=== PATIENT | female | born 1995 | race Caucasian/White ===

== ENCOUNTER 2018-02-02 20:42 | Emergency (ER) | payer SELFPAY ==
[2018-02-02 21:24] LABS: Absolute Lymphocytes (CBC) 2.9 K/uL (0.7-4.9); Absolute Monocytes 0.6 K/uL (0.1-1.3); Absolute Neutrophil 4.2 K/uL (1.8-8.0); Basophils % 0.5 % (0-1.3); Eosinophils % 1.2 % (0-4.4); Hematocrit 39.8 % (36.0-45.0); Lymphocytes % 37.4 % (15.3-44.8); MCH 29.5 pg (27.0-35.0); MCV 87.2 fL (80-100); MPV 8.8 fL (7.6-11.3); Monocytes % 7.6 % (3.3-12.3); RBC Red Blood Cell Count 4.56 M/uL (3.86-4.86)
[2018-02-02 21:32] LABS: Protime INR 0.97
--- NOTE | 2018-02-02 21:49 | EKG ---
Test Date: 2018-02-02 Test Time: 21:08:41 Variety Lathe Operator: IAN MEASUREMENT RESULTS: Intervals: Rate: 83 GA: 132 QRSD: 92 QT: 370 QTc: 434 [place]: P: 16 GA: 132 QRS: 63 T: 26 INTERPRETIVE STATEMENTS: Normal sinus rhythm Normal ECG Compared to ECG 11/11/2013 22:59:59 No significant changes Electronically Signed On 02-02-18 21:49:13 CDT by Rohith Ledesma
[2018-02-02 22:00] LABS: ALT/SGPT 8 U/L (12-78); AST/SGOT 8 U/L (15-37); Albumin 4.1 g/dL (3.4-5.0); Alkaline Phosphatase 49 U/L (45-117); BUN Blood Urea Nitrogen 11 mg/dL (7-18); Bicarbonate 17 mmol/L (21-32); Bilirubin Direct < 0.1 mg/dL (0-0.2); Bilirubin Total 0.4 mg/dL (0.2-1.0); CKMB Creatine Kinase MB < 1.0 ng/mL (0.3-3.6); Creatine Phosphokinase 81 U/L (26-192); Glucose Level 101 mg/dL (74-106); NT PRO-BNP 54 pg/mL (<125); Potassium 3.3 mmol/L (3.5-5.1); Protein, Total 7.9 g/dL (6.4-8.2); Sodium Level 138 mmol/L (136-145)
--- NOTE | 2018-02-02 22:12 | RAD REPORT ---
EXAM DESCRIPTION: Mery Single View02/02/2018 9:50 pm CLINICAL HISTORY: Chest pain COMPARISON: 2013 FINDINGS: The lungs appear clear of acute infiltrate. The heart is normal size IMPRESSION: No acute abnormalities displayed
[2018-02-02] MEDS ORDERED: ALTEPLASE 100 ML IV ONE (23:00)
[2018-02-02] MEDS ORDERED: NA CHLORIDE 0.9% 50 ML IV ONE (23:07)
--- NOTE | 2018-02-02 23:34 | ER ---
Nurse's Notes [facility] Name: Alexander Schneider Age: 22 yrs Sex: Female : 1995 Arrival Date: 02/02/2018 Time: 20:44 Bed 28 Private MD: Diagnosis: Ataxia, unspecified;Cerebral infarction Presentation: 02/02 21:01 Presenting complaint: Patient states: Left sided CP, blurred vision, SOB and tingling aj1 in the right arm for the past 30 minutes. Reports intermittent chest pain that is described as sharp. Denies palpitations, syncope, vomiting. Foreign Diplomat are equal bilaterally, but when asked to raise her leg, her right leg is shaking but remains up. Patient states she has a heart murmur that they are currently evaluating, states she has had the murmur her whole life but when her father was diagnosed with a stroke she started having everything checked out. Patient ambulated with a steady gait back to triage. Smile equal, equal eyebrow raise. Transition of care: patient was not received from another setting of care. Onset of symptoms was February 02, 2018 at 20:30. Risk Assessment: Do you want to hurt yourself or someone else? Patient reports no desire to harm self or others. Initial Sepsis Screen: Does the patient meet any 2 criteria? No. Patient's initial sepsis screen is negative. Does the patient have a suspected source of infection? No. Patient's initial sepsis screen is negative. Note Notified charge nurse Tonya of patient with stroke like symptoms. Care prior to arrival: None. 21:01 Method Of Arrival: Ambulatory aj1 21:01 Acuity: AMARILIS 3 aj1 Triage Assessment: 21:07 General: Appears in no apparent distress. comfortable, Behavior is calm, cooperative, aj1 appropriate for age. Pain: Complains of pain in anterior aspect of left upper chest Pain does not radiate. Pain currently is 7 out of 10 on a pain scale. Quality of pain is described as sharp, Pain began 30 min ago. Is intermittent, Alleviated by nothing. Aggravated by nothing. Neuro: Level of Consciousness is awake, alert, obeys commands, Oriented to person, place, time, situation, Foreign Diplomat are equal bilaterally Moves all extremities. shakiness to right leg. Gait is steady, Speech is normal, Facial symmetry appears normal, Pupils are PERRLA, Tingling in right arm Reports blurred vision numbness in right arm. Cardiovascular: Reports chest pain, Patient's skin is warm and dry. Chest pain is described as Pain is 7 out of 10 on a pain scale. quality is sharp, is located in left anterior chest wall. Respiratory: Airway is patent Respiratory effort is even, unlabored, Respiratory pattern is regular, symmetrical. 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 - Social history:: Smoking status: Patient/guardian denies using tobacco. - Ebola Screening: : Patient denies travel to an Ebola-affected area in the 21 days before illness onset. Screenin:18 Abuse screen: Denies threats or abuse. Denies injuries from another. Nutritional mg2 screening: No deficits noted. Tuberculosis screening: No symptoms or risk factors identified. Fall Risk IV access (20 points). 21:51 Patient has been NPO before screening. The patient is alert, able to follow commands. bb The patient does not exhibit slurred or garbled speech The patient is not exhibiting difficulty speaking. The patient does not exhibit difficulty understanding words. The patient is able to swallow own secretions with no drooling or need for suction. Patient tolerated one teaspoon of water. No drooling, immediate coughing, gurgling, or clearing of the throat was noted. The patient tolerated 90mL of water. No drooling, immediate coughing, gurgling, or clearing of the throat was noted. The patient passed the bedside swallow screening. Oral medications may be given as ordered. Contact Physician for further diet orders. Assessment: 21:18 General: Appears uncomfortable. mg2 22:06 Reassessment: patient sent to CT scan. mg2 22:07 Reassessment:. General: Appears distressed, uncomfortable, Behavior is cooperative, mg2 anxious, restless. Pain: Complains of pain in chest Pain does not radiate. Pain currently is 3 out of 10 on a pain scale. Quality of pain is described as aching, Pain began gradually, \T\ 2015 Is intermittent, Noted to be restless. Neuro: Level of Consciousness is awake, alert, obeys commands, Oriented to person, place, time, situation. Cardiovascular: Capillary refill < 3 seconds Patient's skin is warm and dry. Respiratory: Airway is patent Respiratory effort is even, Respiratory pattern is regular, hyperventilation Breath sounds are clear bilaterally. in right upper lobe, left upper lobe, left lower lobe, right lower lobe, left posterior upper lobe, right posterior upper lobe, left posterior lower lobe, right posterior middle lobe and right posterior lower lobe. GI: No signs and/or symptoms were reported involving the gastrointestinal system. : No signs and/or symptoms were reported regarding the genitourinary system. EENT: No signs and/or symptoms were reported regarding the EENT system. Derm: Skin is intact, Skin is pink, warm \T\ dry. normal. Musculoskeletal: Circulation, motion, and sensation intact. 02/03 01:03 Reassessment: consent for TPA signed by the patient. mg2 Vital Signs: 02/02 21:07 BP 143 / 53; Pulse 107; Resp 20; Temp 98.1(O); Pulse Ox 100% on R/A; Weight 54.43 kg aj1 (R); Height 5 ft. 0 in. (152.40 cm) (R); Pain 7/10; 21:48 BP 100 / 64; Pulse 94; Resp 25; Pulse Ox 100% on R/A; Pain 2/10; bb 23:10 BP 108 / 66; Pulse 73; Resp 18; Pulse Ox 100% on R/A; Pain 0/10; mg2 02/03 00:10 BP 109 / 67; Pulse 90; Resp 18; Pulse Ox 100% on R/A; Pain 0/10; mg2 00:40 BP 111 / 77; Pulse 89; Resp 18; Pulse Ox 100% on R/A; Pain 0/10; mg2 02/02 21:07 Body Mass Index 23.44 (54.43 kg, 152.40 cm) aj1 NIH Stroke Scale Scores: 02/02 21:30 NIHSS Score: 4 pm1 22:40 NIHSS Score: 2 pm1 02/03 00:52 NIHSS Score: 2 mg2 ED Course: 02/02 20:44 Patient arrived in ED. es 20:48 Keith Andrews NP is PHCP. pm1 20:48 Maikol Rayo MD is Attending Physician. pm1 20:50 Jeison Belle, KATRIN is Primary Nurse. mg2 21:07 Triage completed. aj1 21:07 Arm band placed on Patient placed in an exam room. aj1 21:15 EKG done, by ED staff, reviewed by Keith Andrews NP. jp3 21:47 Patient has correct armband on for positive identification. 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 Pulse bb ox on. NIBP on. 21:47 Inserted saline lock: 20 gauge in left antecubital area, using aseptic technique. Blood bb collected. Patient maintains SpO2 saturation greater than 95% on room air. 21:50 XRAY Chest (1 view) In Process Unspecified. EDMS 22:11 CT completed. Patient tolerated procedure well. Patient moved to CT. Patient moved back nj from CT. 22:23 CT Neck Angio In Process Unspecified. EDMS 22:23 Head angio In Process Unspecified. EDMS 22:23 CT Head Brain wo Cont In Process Unspecified. EDMS 08 01:01 No provider procedures requiring assistance completed. Patient transferred, IV remains mg2 in place. Administered Medications: 02/02 22:49 CANCELLED (Physician Discretion): Alteplase (Bolus for Stroke) - Alteplase 0.09 mg/kg pm1 IVP once over 1 mins; Max bolus dose is 9 mg 08 00:23 Drug: Alteplase 48 mg {Co-Signature: lp1 (Daisy Poe RN).} Route: IV; Rate: calculated mg2 rate; Site: left antecubital; 01:12 Follow up: Response: No adverse reaction; IV Status: Completed infusion mg2 00:49 Drug: Potassium Effervescent Tablet 50 mEq Route: PO; mg2 00:55 Follow up: Response: No adverse reaction; Medication administered at discharge. mg2 Outcome: 02/02 23:34 ER care complete, transfer ordered by . pm1 02/03 01:02 Transferred by ground EMS to [facility]. mg2 Transferred Transfer form completed. Condition: stable Instructed on the need for transfer. 01:04 Patient left the ED. mg2 NIH Stroke Scale - NIH Stroke Score Date: 02/02/2018 Time: 21:30 Total Score = 4 1a. Level of Consciousness (LOC) - 0(Alert) 1b. Level of Consciousness (LOC) (Year \T\ Age) - 0(Both) 1c. LOC Commands (Open \T\ Closes Eyes/Second Floor Operator) - 0(Both) 2. Best Gaze (Lateral Gaze Paresis) - 0(Normal) 3. Visual Field Loss - 0(No visual loss) 4. Facial Palsy - 0(Normal) 5a. Left Arm: Motor (10-second hold) - 0(No drift) 5b. Right Arm: Motor (10-second hold) - 1(Drift) 6a. Left Leg: Motor (5-second hold - always test supine) - 0(No drift) 6b. Right Leg: Motor (5-second hold - always test supine) - 1(Drift) 7. Limb Ataxia (finger/nose \T\ heel/mota - test with eyes open) - 2(Present in two limbs) 8. Sensory Loss (pinprick arms/legs/face) - 0(Normal) 9. Best Language: Aphasia (description/naming/reading) - 0(No aphasia) 10. Dysarthria (speech clarity - read or repeat words) - 0(Normal) 11. Extinction and Inattention (visual/tactile/auditory/spatial/personal) - 0(No abnormality) Initials: pm1 NIH Stroke Scale - NIH Stroke Score Date: 02/02/2018 Time: 22:40 Total Score = 2 1a. Level of Consciousness (LOC) - 0(Alert) 1b. Level of Consciousness (LOC) (Year \T\ Age) - 0(Both) 1c. LOC Commands (Open \T\ Closes Eyes/Second Floor Operator) - 0(Both) 2. Best Gaze (Lateral Gaze Paresis) - 0(Normal) 3. Visual Field Loss - 0(No visual loss) 4. Facial Palsy - 0(Normal) 5a. Left Arm: Motor (10-second hold) - 0(No drift) 5b. Right Arm: Motor (10-second hold) - 0(No drift) 6a. Left Leg: Motor (5-second hold - always test supine) - 0(No drift) 6b. Right Leg: Motor (5-second hold - always test supine) - 1(Drift) 7. Limb Ataxia (finger/nose \T\ heel/mota - test with eyes open) - 1(Present in one limb) 8. Sensory Loss (pinprick arms/legs/face) - 0(Normal) 9. Best Language: Aphasia (description/naming/reading) - 0(No aphasia) 10. Dysarthria (speech clarity - read or repeat words) - 0(Normal) 11. Extinction and Inattention (visual/tactile/auditory/spatial/personal) - 0(No abnormality) Initials: pm1 NIH Stroke Scale - NIH Stroke Score Date: 02/03/2018 Time: 00:52 Total Score = 2 1a. Level of Consciousness (LOC) - 0(Alert) 1b. Level of Consciousness (LOC) (Year \T\ Age) - 0(Both) 1c. LOC Commands (Open \T\ Closes Eyes/Second Floor Operator) - 0(Both) 2. Best Gaze (Lateral Gaze Paresis) - 0(Normal) 3. Visual Field Loss - 0(No visual loss) 4. Facial Palsy - 0(Normal) 5a. Left Arm: Motor (10-second hold) - 0(No drift) 5b. Right Arm: Motor (10-second hold) - 0(No drift) 6a. Left Leg: Motor (5-second hold - always test supine) - 0(No drift) 6b. Right Leg: Motor (5-second hold - always test supine) - 1(Drift) 7. Limb Ataxia (finger/nose \T\ heel/mota - test with eyes open) - 1(Present in one limb) 8. Sensory Loss (pinprick arms/legs/face) - 0(Normal) 9. Best Language: Aphasia (description/naming/reading) - 0(No aphasia) 10. Dysarthria (speech clarity - read or repeat words) - 0(Normal) 11. Extinction and Inattention (visual/tactile/auditory/spatial/personal) - 0(No abnormality) Initials: mg2 Signatures: Dispatcher [employer] EDKatherine Wang RN RN aj1 Alyssa Boyd Brenda, RN RN bb Keith Andrews, WAITER/WAITRESS CABIN CLASS WAITER/WAITRESS CABIN CLASS pm1 Waqar Munoz Michele, RN RN mg2 Isaias Vincent jp3 Daisy Poe RN lp1 Corrections: (The following items were deleted from the chart) 00:52 08 21:45 NIHSS Score: 2 mg2 mg2
--- NOTE | 2018-02-02 23:35 | EDPHYS ---
Physician Documentation [facility] Name: Alexander Schneider Age: 22 yrs Sex: Female : 1995 Arrival Date: 02/02/2018 Time: 20:44 Bed 28 Private MD: ED Physician Maikol Rayo HPI: 02/02 21:10 This 22 yrs old Female presents to ER via Ambulatory with complaints of Chest pm1 Pain, Vomiting, Numbness. 21:10 The patient or guardian reports chest pain that is located primarily in the anterior pm1 aspect of left upper chest. The pain does not radiate. Associated signs and symptoms: Pertinent positives: nausea, vomiting, Pertinent negatives: abdominal pain, cough. The chest pain is described as sharp. Duration: The patient or guardian reports multiple episodes, chest pain has been ongoing for multiple months but thirty minutes prior to arrival the patient started having chest pain with difficulty moving left arm, with numbness and cramping to bilateral hands and bilateral feet and circumoral numbness. Chest pain reproducible with deep breathing and palpation. Modifying factors: The symptoms are alleviated by nothing. the symptoms are aggravated by deep breath, palpation of area. Severity of pain: in the emergency department the pain is actually worse. The patient has experienced similar episodes in the past, multiple times, Patient with history of PFO. 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 - Social history:: Smoking status: Patient/guardian denies using tobacco. - Ebola Screening: : Patient denies travel to an Ebola-affected area in the 21 days before illness onset. ROS: 21:10 Constitutional: Negative for fever, chills, and weight loss, Eyes: Negative for injury, pm1 pain, redness, and discharge, ENT: Negative for injury, pain, and discharge, Neck: Negative for injury, pain, and swelling. 21:10 Respiratory: Negative for shortness of breath, cough, wheezing, and pleuritic chest pain, Abdomen/GI: Negative for abdominal pain, nausea, vomiting, diarrhea, and constipation, Back: Negative for injury and pain, : Negative for injury, bleeding, discharge, and swelling, MS/Extremity: Negative for injury and deformity, Skin: Negative for injury, rash, and discoloration, Neuro: Negative for headache, weakness, numbness, tingling, and seizure. 21:10 Cardiovascular: Positive for chest pain, Negative for edema, orthopnea, palpitations. Exam: 21:10 Constitutional: This is a well developed, well nourished patient who is awake, alert, pm1 and in no acute distress. Head/Face: Normocephalic, atraumatic. Eyes: Pupils equal round and reactive to light, extra-ocular motions intact. Lids and lashes normal. Conjunctiva and sclera are non-icteric and not injected. Cornea within normal limits. Periorbital areas with no swelling, redness, or edema. ENT: Nares patent. No nasal discharge, no septal abnormalities noted. Tympanic membranes are normal and external auditory canals are clear. Oropharynx with no redness, swelling, or masses, exudates, or evidence of obstruction, uvula midline. Mucous membranes moist. Neck: Trachea midline, no thyromegaly or masses palpated, and no cervical lymphadenopathy. Supple, full range of motion without nuchal rigidity, or vertebral point tenderness. No Meningismus. 21:10 Cardiovascular: Regular rate and rhythm with a normal S1 and S2. No gallops, murmurs, or rubs. Normal PMI, no JVD. No pulse deficits. Respiratory: Lungs have equal breath sounds bilaterally, clear to auscultation and percussion. No rales, rhonchi or wheezes noted. No increased work of breathing, no retractions or nasal flaring. Abdomen/GI: Soft, non-tender, with normal bowel sounds. No distension or tympany. No guarding or rebound. No evidence of tenderness throughout. 21:10 Back: No spinal tenderness. No costovertebral tenderness. Full range of motion. Skin: Warm, dry with normal turgor. Normal color with no rashes, no lesions, and no evidence of cellulitis. MS/ Extremity: Pulses equal, no cyanosis. Neurovascular intact. Full, normal range of motion. 21:10 Chest/axilla: Inspection: normal, Palpation: tenderness, of the anterior aspect of left upper chest, that totally reproduces the patient's complaints, reproducible with deep breathing. 21:10 ECG: NSR. Normal ECG 21:10 Neuro: Orientation: is normal, Mentation: is normal, Motor: moves all fours. 21:10 Psych: Behavior/mood is anxious, hyperventilating . Affect is animated, Oriented to person, place, time. Vital Signs: 21:07 BP 143 / 53; Pulse 107; Resp 20; Temp 98.1(O); Pulse Ox 100% on R/A; Weight 54.43 kg aj1 (R); Height 5 ft. 0 in. (152.40 cm) (R); Pain 7/10; 21:48 BP 100 / 64; Pulse 94; Resp 25; Pulse Ox 100% on R/A; Pain 2/10; bb 23:10 BP 108 / 66; Pulse 73; Resp 18; Pulse Ox 100% on R/A; Pain 0/10; mg2 02/03 00:10 BP 109 / 67; Pulse 90; Resp 18; Pulse Ox 100% on R/A; Pain 0/10; mg2 00:40 BP 111 / 77; Pulse 89; Resp 18; Pulse Ox 100% on R/A; Pain 0/10; mg2 02/02 21:07 Body Mass Index 23.44 (54.43 kg, 152.40 cm) aj NIH Stroke Scale Scores: 02/02 21:30 NIHSS Score: 4 pm1 22:40 NIHSS Score: 2 pm1 02/03 00:52 NIHSS Score: 2 mg2 MDM: 02/02 21:01 Patient medically screened. pm1 21:10 ED course: Code stroke activated by nursing staff. Patient not having any signs or pm1 symptoms of CVA. Patient presenting to the ER with complaints of chest pain. Patient is hyperventilating with complaints of tingling and cramping to bilateral hands and feet with circumoral numbness. Code stroke not necessary. 21:30 ED course: Patient reevaluated by attending physician. Patient with right sided ataxia. pm1 Unable to perform nose finger test on right side and heel mota on right side. Drift with right arm and right leg. NIHSS score 4. Will order CT head and neck angio. 22:40 ED course: Patient onset of symptoms at 2029. CT scan results negative. Patient within pm1 window for treatment for TPA. 22:56 Physician consultation: Monisha Duran regarding regarding transfer, to [facility]. pm1 patient's condition, and will see patient Updated on patient's symptoms and improvement. Patient with right lower leg ataxia and drift. Right upper extremity ataxia and drift have resolved. Discussed the decision for administration TPA and is in agreement with giving it. Patient is within the window of treatment and she and the family would like the medication administered. 23:05 Data reviewed: vital signs. Data interpreted: Pulse oximetry: on room air is 100 %. pm1 Interpretation: normal. 02/02 21:06 Order name: Basic Metabolic Panel; Complete Time: 22:38 pm1 02/02 21:06 Order name: CBC with Diff; Complete Time: 21:39 pm1 02/02 21:06 Order name: Ckmb; Complete Time: 22:38 pm1 02/02 21:06 Order name: CPK; Complete Time: 22:38 pm1 02/02 21:06 Order name: LFT's; Complete Time: 22:38 pm1 02/02 21:06 Order name: Magnesium; Complete Time: 22:38 pm1 02/02 21:06 Order name: NT PRO-BNP; Complete Time: 22:38 pm1 02/02 21:06 Order name: PT-INR; Complete Time: 21:39 pm1 02/02 21:06 Order name: Ptt, Activated; Complete Time: 21:39 pm1 02/02 21:06 Order name: Troponin (emerg Dept Use Only); Complete Time: 22:38 pm1 02/02 21:06 Order name: XRAY Chest (1 view); Complete Time: 22:38 pm1 02/02 21:06 Order name: UDS; Complete Time: 01:20 pm1 / 00:53 Order name: Urine Dipstick--Ancillary (enter results); Complete Time: 01:20 ms 02/03 00:55 Order name: Urine --Ancillary (enter results); Complete Time: 01:20 ms 02/02 21:06 Order name: EKG; Complete Time: 21:07 pm1 02/02 21:06 Order name: Cardiac monitoring; Complete Time: 21:16 pm1 02/02 21:06 Order name: EKG - Nurse/Tech; Complete Time: 21:16 pm1 02/02 21:06 Order name: IV Saline Lock; Complete Time: 21:16 pm1 02/02 21:06 Order name: Labs collected and sent; Complete Time: 21:16 pm1 02/02 21:06 Order name: O2 Per Protocol; Complete Time: 21:16 pm1 02/02 21:06 Order name: O2 Sat Monitoring; Complete Time: 21:16 pm1 02/02 21:06 Order name: Urine Dipstick-Ancillary (obtain specimen); Complete Time: 00:49 pm1 02/02 21:39 Order name: CT Neck Angio pm1 02/02 21:50 Order name: Head angio EDME 02/02 21:57 Order name: CT Head Brain wo Cont pm1 Administered Medications: 22:49 CANCELLED (Physician Discretion): Alteplase (Bolus for Stroke) - Alteplase 0.09 mg/kg pm1 IVP once over 1 mins; Max bolus dose is 9 mg 02/03 00:23 Drug: Alteplase 48 mg {Co-Signature: lp1 (Daisy Poe RN).} Route: IV; Rate: calculated mg2 rate; Site: left antecubital; 01:12 Follow up: Response: No adverse reaction; IV Status: Completed infusion mg2 00:49 Drug: Potassium Effervescent Tablet 50 mEq Route: PO; mg2 00:55 Follow up: Response: No adverse reaction; Medication administered at discharge. mg2 Disposition: 04:24 Co-signature as Attending Physician, Maikol Rayo MD I agree with the assessment and ps1 plan of care. PA/[employer]'s history reviewed, patient interviewed, and examined. Attestation: The patient's history, exam findings, diagnostics, and a summary of any interventions or procedures was reviewed in detail with Keith Andrews NP. Disposition: 02/02/18 23:34 Transfer ordered to [facility]. Diagnosis are Cerebral infarction, Ataxia, unspecified. - Reason for transfer: Higher level of care. - Accepting physician is Kyra Duran. - Condition is Stable. - Problem is new. - Symptoms have improved. NIH Stroke Scale - NIH Stroke Score Date: 02/02/2018 Time: 21:30 Total Score = 4 1a. Level of Consciousness (LOC) - 0(Alert) 1b. Level of Consciousness (LOC) (Year \T\ Age) - 0(Both) 1c. LOC Commands (Open \T\ Closes Eyes/Carburizer) - 0(Both) 2. Best Gaze (Lateral Gaze Paresis) - 0(Normal) 3. Visual Field Loss - 0(No visual loss) 4. Facial Palsy - 0(Normal) 5a. Left Arm: Motor (10-second hold) - 0(No drift) 5b. Right Arm: Motor (10-second hold) - 1(Drift) 6a. Left Leg: Motor (5-second hold - always test supine) - 0(No drift) 6b. Right Leg: Motor (5-second hold - always test supine) - 1(Drift) 7. Limb Ataxia (finger/nose \T\ heel/mota - test with eyes open) - 2(Present in two limbs) 8. Sensory Loss (pinprick arms/legs/face) - 0(Normal) 9. Best Language: Aphasia (description/naming/reading) - 0(No aphasia) 10. Dysarthria (speech clarity - read or repeat words) - 0(Normal) 11. Extinction and Inattention (visual/tactile/auditory/spatial/personal) - 0(No abnormality) Initials: pm1 NIH Stroke Scale - NIH Stroke Score Date: 02/02/2018 Time: 22:40 Total Score = 2 1a. Level of Consciousness (LOC) - 0(Alert) 1b. Level of Consciousness (LOC) (Year \T\ Age) - 0(Both) 1c. LOC Commands (Open \T\ Closes Eyes/Carburizer) - 0(Both) 2. Best Gaze (Lateral Gaze Paresis) - 0(Normal) 3. Visual Field Loss - 0(No visual loss) 4. Facial Palsy - 0(Normal) 5a. Left Arm: Motor (10-second hold) - 0(No drift) 5b. Right Arm: Motor (10-second hold) - 0(No drift) 6a. Left Leg: Motor (5-second hold - always test supine) - 0(No drift) 6b. Right Leg: Motor (5-second hold - always test supine) - 1(Drift) 7. Limb Ataxia (finger/nose \T\ heel/mota - test with eyes open) - 1(Present in one limb) 8. Sensory Loss (pinprick arms/legs/face) - 0(Normal) 9. Best Language: Aphasia (description/naming/reading) - 0(No aphasia) 10. Dysarthria (speech clarity - read or repeat words) - 0(Normal) 11. Extinction and Inattention (visual/tactile/auditory/spatial/personal) - 0(No abnormality) Initials: pm1 NIH Stroke Scale - NIH Stroke Score Date: 02/03/2018 Time: 00:52 Total Score = 2 1a. Level of Consciousness (LOC) - 0(Alert) 1b. Level of Consciousness (LOC) (Year \T\ Age) - 0(Both) 1c. LOC Commands (Open \T\ Closes Eyes/Carburizer) - 0(Both) 2. Best Gaze (Lateral Gaze Paresis) - 0(Normal) 3. Visual Field Loss - 0(No visual loss) 4. Facial Palsy - 0(Normal) 5a. Left Arm: Motor (10-second hold) - 0(No drift) 5b. Right Arm: Motor (10-second hold) - 0(No drift) 6a. Left Leg: Motor (5-second hold - always test supine) - 0(No drift) 6b. Right Leg: Motor (5-second hold - always test supine) - 1(Drift) 7. Limb Ataxia (finger/nose \T\ heel/mota - test with eyes open) - 1(Present in one limb) 8. Sensory Loss (pinprick arms/legs/face) - 0(Normal) 9. Best Language: Aphasia (description/naming/reading) - 0(No aphasia) 10. Dysarthria (speech clarity - read or repeat words) - 0(Normal) 11. Extinction and Inattention (visual/tactile/auditory/spatial/personal) - 0(No abnormality) Initials: mg2 Signatures: Dispatcher [employer] EDME Katherine Huerta RN RN aj1 Keith Andrews, [employer] pm1 Maikol Rayo MD MD ps1 Jeison Belle RN RN mg2 Daisy Poe RN lp1 Corrections: (The following items were deleted from the chart) 02/02 21:50 21:39 Head Brain W [id number].[id number] ordered. EDME EDMS 22:49 22:43 Alteplase (Bolus for Stroke) - Alteplase 0.09 mg/kg IVP once over 1 mins; pm1 Max bolus dose is 9 mg ordered. pm1 02/03 01:04 02/02 23:34 02/02/2018 23:34 Transfer ordered to [address] Diagnosis is Cerebral infarctionAtaxia, unspecified. Reason for transfer: Higher level of care. Accepting physician is Kyra Duran. Condition is Stable. Problem is new. Symptoms have improved. pm1
[2018-02-03] MEDS ORDERED: POTASSIUM 25 MEQ EFFERV TAB ONE (00:42)
[2018-02-03 00:56] LABS: Urine Blood NEGATIVE (NEG); Urine Glucose NEGATIVE (NEG); Urine Protein NEGATIVE (NEG); Urine pH 7.5 (5.0-7.0)
[2018-02-03 01:01] LABS: Barbiturates NEGATIVE (NEGATIVE); Benzodiazepines NEGATIVE (NEGATIVE); Cocaine NEGATIVE (NEGATIVE); METHAMPHETAM NEGATIVE (NEGATIVE); Methadone NEGATIVE (NEGATIVE); Opiates NEGATIVE (NEGATIVE); Phencyclidine NEGATIVE (NEGATIVE); THC Cannibis NEGATIVE (NEGATIVE)
--- NOTE | 2018-02-03 07:06 | RAD REPORT ---
EXAM DESCRIPTION: CT - Neck Angio - 02/03/2018 6:13 am CLINICAL HISTORY: Extremity numbness, CVA symptoms A preliminary written report was provided at the time of the study, and the report was reviewed prio r to final dictation. COMPARISON: CT head November 2013, CT cervical spine 2013 TECHNIQUE: During dynamic enhancement using nonionic IV contrast, axial 2 millimeter thick images of the neck obtained. Multiplanar reconstruction images were generated using maximum intensity projecti on (MIP) algorithm. The CT scan was performed using dose optimization techniques as appropriate to a performed exam incl uding one or more of the following: Automated exposure control, adjustment of the mA and/or kV accord ing to patient size (this includes techniques or standardized protocols for targeted exams where dose is matched to indication/reason for exam) and use of iterative reconstruction technique. FINDINGS: Aortic arch is 3 vessel configuration. Great vessel and vertebral artery origins show no s uspicious findings. No dissection, stenosis, vasculitis or other acute cervical vascular abnormality. Left vertebral artery is slightly dominant. No soft tissue mass or other suspicious finding identifiable in the neck. IMPRESSION: Normal CT angio of the neck.
--- NOTE | 2018-02-03 07:10 | RAD REPORT ---
EXAM DESCRIPTION: CT - Head angio - 02/03/2018 6:14 am CLINICAL HISTORY: Extremity numbness, stroke-like symptoms A preliminary written report was provided at the time of the study, and the report was reviewed prio r to final dictation. COMPARISON: CT head November 2013 TECHNIQUE: During dynamic enhancement using nonionic IV contrast, axial 1 millimeter thick images we re obtained from the upper most cervical spine through the cerebral convexity. Multiplanar reconstruc tion images were generated using maximum intensity projection (MIP) algorithm. The CT scan was performed using dose optimization techniques as appropriate to a performed exam incl uding one or more of the following: Automated exposure control, adjustment of the mA and/or kV accord ing to patient size (this includes techniques or standardized protocols for targeted exams where dose is matched to indication/reason for exam) and use of iterative reconstruction technique. FINDINGS: No venous sinus thrombosis or other abnormality of the major intracranial venous structure s. No aneurysm or vascular malformation. No vasculitis seen. No branch occlusion confirmed. The left P1 GRAIN OILSEED OR PASTURE FARM WORKER segment is absent or very small as a normal anatomic variant. Patient has a dominant left posteri or communicating artery variant. Brain parenchyma another soft tissue and bony structures are detaile d on separate CT head report. IMPRESSION: Normal CT angio head examination.
--- NOTE | 2018-02-03 07:12 | RAD REPORT ---
EXAM DESCRIPTION: CT - Head Brain Wo Cont - 02/03/2018 6:12 am CLINICAL HISTORY: Extremity numbness, stroke-like symptoms A preliminary written report was provided at the time of the study, and the report was reviewed prio r to final dictation. COMPARISON: CT head November 2013 TECHNIQUE: Axial 5 mm thick images of the head were obtained without IV contrast. All CT scans are performed using dose optimization technique as appropriate and may include automated exposure control or mA/KV adjustment according to patient size. FINDINGS: No intracranial hemorrhage, mass, edema or shift of mid-line structures. No acute infarcti on changes seen. No abnormal extra-axial fluid collections. Ventricles are normal. Mastoid air cells and visualized portions of the paranasal sinuses are clear. No acute bony findings. No significant change from comparison. IMPRESSION: Negative non-contrast CT head examination. If there are continued, unexplained focal neurologic symptoms, followup MR imaging could be performed .
== END 2018-02-03 01:04 | disposition short-term general hospital (02) ==
LOC: ER 20:42
DX: I63.9 Cerebral infarction, unspecified (principal); G11.9 Hereditary ataxia, unspecified
CPT/HCPCS: 36415; 70450; 70496; 70498; 71045; 80048; 80076; 80307; 81003; 81025; 82550; 82553; 83735; 83880; 84484; 85025; 85610; 85730; 92977; 93005; 96365; 99285; J2997; Q9967

== ENCOUNTER 2022-08-04 18:53 | Emergency (ER) | payer SELFPAY ==
--- OUTSIDE RECORDS SUMMARY | 2022-08-04 18:56 | XMS REPORT | Continuity of Care Document ---
:1995 Author Organization [facility] t Address [address] [place] [address] Care Team Providers Name Role Phone No, Pcp [facility] Primary Care Physician Unavailable Serafin Torres Attending Clinician Unavailable TASHA MARCUS Attending Clinician Unavailable [facility] Admitting Clinician Unavailable TASHA MARCUS Admitting Clinician Unavailable Payers Payer Name Policy Type Policy Number Effective Date Expiration Date S ource Problems Condition Condition Condition Status Onset Resolution Last Treating Co mments Source Name Details Category Date Date Treatment Clinician Date Dysmetria Dysmetria Disease [facility] PFO PFO Disease Active [facility] foramen foramen 00:00: Medical ovale) ovale) 00 Center TIA TIA Disease Active [facility] (transient (transient 8 [facility] ischemic ischemic 00:00: Medica l attack) attack) 00 Center Allergies, Adverse Reactions, Alerts Allergy Allergy Status Severity Reaction(s) Onset Inactive Treating Comm ents Source Name Type Date Date Clinician No Known DA Active [facility]03 Clear s 00:00: [place] 00 [facility] Social History Social Habit Start Date Stop Date Quantity Comments Source History SDOH [facility] Alcohol Frequency [facility] History SDOH [facility] Alcohol Std Drinks [facility] History SDIA [facility] Alcohol Binge Medical [address] [facility] Alcohol intake 2018-02-12 2018-02-12 [facility] (finding) Tobacco use and 2018-02-03 2018-02-[address] [facility] exposure 00:00:00 00:00:00 Medical Center History SDOH 2018-02-03 2018-02-03 maybe once/month [facility] Alcohol Comment 00:00:00 00:00:00 Medical C enter Sex Assigned At [address] [address] [facility] 00:00:00 00:[facility]:00 [facility] Center Smoking Status Start Date Stop Date Source Never smoker [facility] Medications Ordered Filled Start Stop Current Ordering Indication Dosage Frequency Signature Comments Components Source Medication Medication Date Date Medication? Clinician (SIG) Name Name aspirin 81 Yes 81mg QD Take 1 [facility] chew[facility] tablet (81 [facility] tablet 00:00: mg total) [facility] Center daily. Procedures This patient has no known procedures. Encounters Start End Encounter Admission Attending Care Care Encounter Source Date/Time Date/Time Type Type Clinicians Facility Department ID 2021-11-04 2021-11-04 [facility] [id number] [facility] 08:33:00 08:33:00 [place] [id number] Cl ear [facility] Results Test Description Test Time Test Comments Results Result Comments Source UA RFLX MICR CULT IF INDICATED 2021-11-07 11:50:00 Test Item Value Reference Range Interpretation Comme nts UA COLOR (test code = COLU) COLORLESS YEL/STRAW UA APPEARANCE (test code = APPU) CLEAR CLEAR UA GLUCOSE DIPSTICK (test code = DGLUU) NEGATIVE NEGATIVE UA BILIRUBIN DIPSTICK (test code = BILU) NEGATIVE NEGATIVE UA KETONE DIPSTICK (test code = KETU) NEGATIVE NEGATIVE UA SPECIFIC GRAVITY (test code = SGU) 1.000 1.005-1.030 L UA BLOOD DIPSTICK (test code = TENNILLE) 2+ NEGATIVE A UA PH DIPSTICK (test code = KIEL) 7.0 5.0-7.0 N UA PROTEIN DIPSTICK (test code = PROU) NEGATIVE NEGATIVE UA UROBILINIOGEN DIPSTICK (test code = URO) 0.2 mg/dL 0.2-1.0 UA NITRITE DIPSTICK (test code = MICHAEL) NEGATIVE NEGATIVE UA LEUKOCYTE ESTERASE DIPSTICK (test code = LEUU) 2+ NEGA TIVE A UA WBC (test code = WBCU) 4-9 WBC/HPF 0-3 A UA RBC (test code = RBCU) 0-3 RBC/HPF 0-3 UA WBC NO REFLEX (test code = WBCUCL) 4-9 WBC/HPF 0-3 A UA BACTERIA (test code = BACU) TRACE /HPF NONE SEEN UA SQUAMOUS CELLS (test code = SQU) 0-5 /HPF NONE SEEN URINE HCG TRIAGE (ER ONLY)2021-11-04 09:07:00 Test Item Value Reference Range Interpretation Comments URINE HCG TRIAGE (ER ONLY) (test NEGATIVE Negative code = HCGTRIAGE) Urine Test Result: NEGATIVEAre internal controls (presence of a control line & clear background) OK? YesLot # of HCG Test Kit: [id number] Date of Kit: 02/01/23Test Performed by: Truong Perfomed on: 11/04/21UA DIPSTICK [id number] 08:56:00 Test Item Value Reference Range Interpretation Comments UA GLUCOSE DIPSTIC POC NEGATIVE NEGATIVE (test code = GLUUP) UA BILIRUBIN DIPSTICK NEGATIVE NEGATIVE (test code = BILU) UA KETONE DIPSTICK POC NEGATIVE NEGATIVE (test code = KETUP) UA SPECIFIC GRAVITY (test 1.005 1.005-1.030 N code = SGU) UA BLOOD DIPSTIC POC 1+ NEGATIVE A Perform ed by (test code = BLUP) certified maintainer operator at [facility] UA PH DIPSTIC POC (test 7 5.0-7.0 N code = PHUP) UA PROTEIN DIPSTICK POC NEGATIVE NEGATIVE (test code = DPROUP) UA UROBILINIOGEN QUAL NORMAL 0.2-1.0 (test code = UROQL) UA NITRITE DIPSTICK POC NEGATIVE Negative (test code = NITUP) UA LEUKOCYTE ESTERASE W TRACE NEGATIVE A REFLEX (test code = LEUUR) - CT ABD PELVIS W/O [id number] 00:00:00 [facility]ances schneider : 1995 Sex: F Name: frances schneider FSED : 1995 Age/S: 26 / F [address] [facility] Unit #: [id number] Loc: [place] [address] Phys: Serafin Torres MD Acct: [id number] Dis Date: Status: REG ER PHONE #: Exam Date: 11/04/2021 0907 FAX #: Reason: flank pain EXAMS: CPT CODE: [id number] CT ABD PELVISW/O CONT 04947 PROCEDURE INFORMATION: Exam: CT Abdomen And Pelvis Without Contrast Exam date and time: 11/04/2021 9:00 AM Age: 26 years old Clinical indication: Abdominal pain; Other: Flank pain TECHNIQUE: Imaging protocol: Computed tomography of the abdomen and pelvis without contrast. Radiation optimization: All CT scans at this facility use at least one of these dose optimization techniques: automated exposure control; mA and/or kV adjustment per patient size (includes targeted exams where dose ismatched to clinical indication); or iterative reconstruction. COMPARISON: No relevant prior studies available. FINDINGS: Limitations: Evaluation of abdominal viscera and vasculature may be limited by the lack of intravenous contrast which is standard for urinary calculus assessment CT. Lungs: The visualized lung bases are clear. Heart: The heart is not enlarged. Metallic artifact compatible with atrial septal closure device partially imaged on this exam. Liver: Unremarkable. Gallbladder and bile ducts: Normal. No calcified stones. No ductal dilation. Pancreas: Unremarkable. Spleen: Unremarkable. Adrenal glands: There is a circumscribed 16 x 12 mm right adrenal nodule, attenuation less than 10 Hounsfield units. The left adrenal is unremarkable. Kidneys and ureters: The renal contours are normal. No urinary calculi, hydronephrosis or perinephric stranding. Stomach and bowel: Unremarkable. Appendix: No evidence of appendicitis. Intraperitoneal space: There is no free intraperitoneal fluid or air.No focal fluid collection. Vasculature: Unremarkable. Lymph nodes: There are numerous small mesenteric nodes measuring up to 7 mm short axis. There is no retroperitoneal or pelvic adenopathy by size criteria. Urinary bladder: The urinary bladder is unremarkable. Reproductive: Unremarkable as visualized. Bones/joints: Unremarkable. No acute fracture. Soft tissues: Unremarkable. IMPRESSION: PAGE 1 Signed Report (CONTINUED) Name: frances schneider FSED : 1995 Age/S: 26 / F [address] [facility] Unit #: [id number] Loc: [place] [address] Phys: Serafin Torres MD Acct: [id number] DisDate: Status: REG ER PHONE #: Exam Date: 11/04/2021 0907 FAX #: Reason: flank pain EXAMS: CPT CODE: [id number] CT ABD PELVIS W/O CONT 72869 (Continued) 1. Negative for urinary calculus or evidence of obstruction. 2. Numerous borderline enlarged mesenteric nodes. Please correlate clinically for evidence of a mesenteric adenitis as a source of the patient's symptoms. 3. Incidental right adrenal adenoma for which no further imaging is recommended. COMMENTS: Consistent with the [employer]'s Incidental Findings Committee white paper (J Am Mona Radiol 2017): Any incidental adrenal lesion less than or equal to 1 cm is likely benign. No follow-up imaging is recommended for these lesions per consensus recommendations based on imaging criteria. Further lab evaluation could be pursued if warranted based on clinical findings. at 0946 Reported and signed by: Phill Ramos M.D. CC: Serafin Torres MD Technologist:Elisha Tejeda, RT(R); Kira CTDI: DLP: Trnscb Date/Time: 11/04/2021 (945) Tyrone OrigPrint D/T: S: 11/04/2021 (945) PAGE 2 Signed ReportPOCT-GLUCOSE METER 2018-02-11 07:57:00 Test Item Value Reference Range Interpretation Comments POC-GLUCOSE METER 98 mg/dL 70-110 TESTED AT [facility] 67[address] (BEAKER) (test code = DORINDA Bearden [facility] [address]38) BASIC METABOLIC [id number] 06:37:00 Test Item Value Reference Range Interpretation Comments SODIUM (BEAKER) 135 meq/L 136-145 L (test code = 381) POTASSIUM (BEAKER) 4.0 meq/L 3.5-5.1 (test code = 379) CHLORIDE (BEAKER) 108 meq/L 98-107 H (test code = 382) CO2 (BEAKER) (test 20 meq/L 22-29 L code = 355) BLOOD UREA NITROGEN 12 mg/dL 7-21 (BEAKER) (test code = 354) CREATININE (BEAKER) 0.61 mg/dL 0.57-1.25 (test code = 358) GLUCOSE RANDOM 107 mg/dL 70-105 H (BEAKER) (test code = 652) CALCIUM (BEAKER) 9.0 mg/dL 8.4-10.2 (test code = 697) EGFR (BEAKER) (test 124 mL/min/1.73 ESTIM ATED GFR IS code = 1092) sq m NOT ACCURATE CREATININE CLEARANCE IN PREDICTING GLOMERULAR FILTRATION RATE . ESTIMATED GFR I S NOT APPLICABLE FOR DIALYSIS PATIEN TS. CBC W/PLT COUNT & AUTO [id number] 06:15:00 Test Item Value Reference Range Interpretation Comments WHITE BLOOD CELL COUNT (BEAKER) 8.3 K/ L 3.5-10.5 (test code = 775) RED BLOOD CELL COUNT (BEAKER) 4.18 M/ L 3.93-5.22 (test code = 761) HEMOGLOBIN (BEAKER) (test code = 12.3 GM/DL 11.2-15.7 410) HEMATOCRIT (BEAKER) (test code = 36.7 % 34.1-44.9 411) MEAN CORPUSCULAR VOLUME (BEAKER) 87.8 fL 79.4-94.8 (test code = 753) MEAN CORPUSCULAR HEMOGLOBIN 29.4 pg 25.6-32.2 (BEAKER) (test code = 751) MEAN CORPUSCULAR HEMOGLOBIN CONC 33.5 GM/DL 32.2-35.5 (BEAKER) (test code = 752) RED CELL DISTRIBUTION WIDTH 12.1 % 11.7-14.4 (BEAKER) (test code = 412) PLATELET COUNT (BEAKER) (test 240 K/CU MM 150-450 code = 756) MEAN PLATELET VOLUME (BEAKER) 10.3 fL 9.4-12.3 (test code = 754) NUCLEATED RED BLOOD CELLS 0 /100 WBC 0-0 (BEAKER) (test code = 413) NEUTROPHILS RELATIVE PERCENT 68 % (BEAKER) (test code = 429) LYMPHOCYTES RELATIVE PERCENT 21 % (BEAKER) (test code = 430) MONOCYTES RELATIVE PERCENT 9 % (BEAKER) (test code = 431) EOSINOPHILS RELATIVE PERCENT 1 % (BEAKER) (test code = 432) BASOPHILS RELATIVE PERCENT 0 % (BEAKER) (test code = 437) NEUTROPHILS ABSOLUTE COUNT 5.69 K/ L 1.56-6.13 (BEAKER) (test code = 670) LYMPHOCYTES ABSOLUTE COUNT 1.75 K/ L 1.18-3.74 (BEAKER) (test code = 414) MONOCYTES ABSOLUTE COUNT (BEAKER) 0.76 K/ L 0.24-0.36 H (test code = 415) EOSINOPHILS ABSOLUTE COUNT 0.05 K/ L 0.04-0.36 (BEAKER) (test code = 416) BASOPHILS ABSOLUTE COUNT (BEAKER) 0.02 K/ L 0.01-0.08 (test code = 417) IMMATURE GRANULOCYTES-RELATIVE 1 % 0-1 PERCENT (BEAKER) (test code = 2801) [id number] 18:54:00 Test Item Value Reference Range Interpretation Comments ACTIVATED CLOTTING TIME 131 sec TEST ED AT [place] [address] ([facility]) (test [facility] = [facility] [place] [address]) [address] [id number] 17:15:00 Test Item Value Reference Range Interpretation Comments ACTIVATED CLOTTING TIME 153 sec TEST ED AT [place] [address] ([facility]) (test code = [facility] Monisha [place] [address]) [address] FACTOR 5 LEIDEN PCR (THROMBOTIC RISK)2018-02-10 16:20:00 Test Item Value Reference Range Interpretation Comments FACTOR V LEIDEN Negative for the R506Q (DORA) (test code = (Factor V Leiden) 718) mutation [id number] Kandy Simon MD (DORA) (test code = (electronic signature) 3052) This test is a genotyping assay which evaluates the DNA sequence corresponding to Codon 506 of the Factor V Gene. A region of the Factor V Gene is amplified by polymerase chain reaction followed by fluorescent monitoring of a specific pair of hybridized probes. Since genetic variation and other factors can affect the accuracy of direct mutation testing, these results should be interpreted in light ofclinical and familial data.This test was developed and [facility]. It has not been cleared or approved by the U.S. Food and Drug Administration (FDA), since FDA approval is not requ ired for clinical use of the test. Validation was done as required by the Clinical Laboratory Improvement Amendments of 1988.PROTHROMBIN GENE MUTATION 2018-02-10 16:18:00 Test Item Value Reference Range Interpretation Comments PROTHROMBIN/FACTOR Negative for the [id number] II (DORA) (test (Prothrombin/Factor II) code = 2163) mutation. [id number] Kandy Simon MD 1(DORA) (test code (electronic signature) = 2605) This test is a genotyping assay which evaluates the DNA sequence at position 14901 of the prothrombin (Factor II) gene. A region of the prothrombin (Factor II) gene is amplified by polymerase chain reaction followed by fluorescent monitoring of a specific pair of hybridized probes. Since genetic variation and other factors can affect the accuracy of direct mutation testing, these results should be interpreted in light of clinical and familial data.This test was developed and its performance characteristics determined by the [facility] Pathology Department, Section of Molecular Pathology. It has not been cleared or approved by the U.S. Food and Drug Administration (FDA), since FDA approval is not required for clinical use of the test. Validation was done as required by the Clinical Laboratory Improvement Amendments of 1988.POCT-ACT 2018-02-10 13:46:00 Test Item Value Reference Range Interpretation Comments ACTIVATED CLOTTING TIME 246 sec TEST ED AT [facility] 67[address] (BEAKER) (test code = [place] [address]) [address] BASIC METABOLIC [id number] 09:30:00 Test Item Value Reference Range Interpretation Comments SODIUM (BEAKER) 136 meq/L 136-145 (test code = 381) POTASSIUM (BEAKER) 3.9 meq/L 3.5-5.1 (test code = 379) CHLORIDE (BEAKER) 106 meq/L 98-107 (test code = 382) CO2 (BEAKER) (test 19 meq/L 22-29 L code = 355) BLOOD UREA NITROGEN 12 mg/dL 7-21 (BEAKER) (test code = 354) CREATININE (BEAKER) 0.69 mg/dL 0.57-1.25 (test code = 358) GLUCOSE RANDOM 88 mg/dL 70-105 (BEAKER) (test code = 652) CALCIUM (BEAKER) 9.5 mg/dL 8.4-10.2 (test code = 697) EGFR (BEAKER) (test 107 mL/min/1.73 ESTIM ATED GFR IS code = 1092) sq m NOT ACCURATE CREATININE CLEARANCE IN PREDICTING GLOMERULAR FILTRATION RATE . ESTIMATED GFR I S NOT APPLICABLE FOR DIALYSIS PATIEN TS. PROTHROMBIN [id number] 09:21:00 Test Item Value Reference Range Interpretation Comments PROTIME (BEAKER) (test code = 13.6 seconds 11.7-14.7 759) INR (BEAKER) (test code = 370) 1.0 <=5.9 RECOMMENDED COUMADIN/WARFARIN INR THERAPY RANGESSTANDARD DOSE: 2.0 - 3.0 Includes: PROPHYLAXIS for venous thrombosis, systemic embolization; TREATMENT for venous thrombosis and/or pulmonary embolus.HIGH RISK: Target INR is 2.5-3.5 for patients with mechanical heart valves.CBC W/PLT COUNT & AUTO [id number] 09:10:00 Test Item Value Reference Range Interpretation Comments WHITE BLOOD CELL COUNT (BEAKER) 6.1 K/ L 3.5-10.5 (test code = 775) RED BLOOD CELL COUNT (BEAKER) 4.66 M/ L 3.93-5.22 (test code = 761) HEMOGLOBIN (BEAKER) (test code = 13.6 GM/DL 11.2-15.7 410) HEMATOCRIT (BEAKER) (test code = 40.5 % 34.1-44.9 411) MEAN CORPUSCULAR VOLUME (BEAKER) 86.9 fL 79.4-94.8 (test code = 753) MEAN CORPUSCULAR HEMOGLOBIN 29.2 pg 25.6-32.2 (BEAKER) (test code = 751) MEAN CORPUSCULAR HEMOGLOBIN CONC 33.6 GM/DL 32.2-35.5 (BEAKER) (test code = 752) RED CELL DISTRIBUTION WIDTH 12.3 % 11.7-14.4 (BEAKER) (test code = 412) PLATELET COUNT (BEAKER) (test 264 K/CU MM 150-450 code = 756) MEAN PLATELET VOLUME (BEAKER) 10.4 fL 9.4-12.3 (test code = 754) NUCLEATED RED BLOOD CELLS 0 /100 WBC 0-0 (BEAKER) (test code = 413) NEUTROPHILS RELATIVE PERCENT 49 % (BEAKER) (test code = 429) LYMPHOCYTES RELATIVE PERCENT 41 % (BEAKER) (test code = 430) MONOCYTES RELATIVE PERCENT 8 % (BEAKER) (test code = 431) EOSINOPHILS RELATIVE PERCENT 2 % (BEAKER) (test code = 432) BASOPHILS RELATIVE PERCENT 0 % (BEAKER) (test code = 437) NEUTROPHILS ABSOLUTE COUNT 2.97 K/ L 1.56-6.13 (BEAKER) (test code = 670) LYMPHOCYTES ABSOLUTE COUNT 2.50 K/ L 1.18-3.74 (BEAKER) (test code = 414) MONOCYTES ABSOLUTE COUNT (BEAKER) 0.47 K/ L 0.24-0.36 H (test code = 415) EOSINOPHILS ABSOLUTE COUNT 0.13 K/ L 0.04-0.36 (BEAKER) (test code = 416) BASOPHILS ABSOLUTE COUNT (BEAKER) 0.02 K/ L 0.01-0.08 (test code = 417) IMMATURE GRANULOCYTES-RELATIVE 0 % 0-1 PERCENT (BEAKER) (test code = 2801) COMPREHENSIVE METABOLIC [id number] 04:30:00 Test Item Value Reference Range Interpretation Comments TOTAL PROTEIN 6.7 gm/dL 6.0-8.3 (BEAKER) (test code = 770) ALBUMIN (BEAKER) 3.9 g/dL 3.5-5.0 (test code = 1145) ALKALINE PHOSPHATASE 34 U/L 40-150 L (BEAKER) (test code = 346) BILIRUBIN TOTAL 0.3 mg/dL 0.2-1.2 (BEAKER) (test code = 377) SODIUM (BEAKER) (test 137 meq/L 136-145 code = 381) POTASSIUM (BEAKER) 4.3 meq/L 3.5-5.1 (test code = 379) CHLORIDE (BEAKER) 108 meq/L 98-107 H (test code = 382) CO2 (BEAKER) (test 22 meq/L 22-29 code = 355) BLOOD UREA NITROGEN 12 mg/dL 7-21 (BEAKER) (test code = 354) CREATININE (BEAKER) 0.67 mg/dL 0.57-1.25 (test code = 358) GLUCOSE RANDOM 103 mg/dL 70-105 (BEAKER) (test code = 652) CALCIUM (BEAKER) 9.6 mg/dL 8.4-10.2 (test code = 697) AST (SGOT) (BEAKER) 14 U/L 5-34 (test code = 353) ALT (SGPT) (BEAKER) 9 U/L 6-55 (test code = 347) EGFR (BEAKER) (test 111 ESTIMATE D GFR IS code = 1092) mL/min/1.73 sq NOT ACCURA TE m CREATININE CLEARANCE IN PREDICTING GLOMERULAR FILTRATION RATE . ESTIMATED GFR I S NOT APPLICABLE FOR DIALYSIS PATIEN TS. [id number] 04:13:00 Test Item Value Reference Range Interpretation Comments PROTIME (BEAKER) (test code = 14.2 seconds 11.7-14.7 759) INR (BEAKER) (test code = 370) 1.1 <=5.9 PARTIAL THROMBOPLASTIN TIME 29.2 seconds 22.5-36.0 (BEAKER) (test code = 760) RECOMMENDED COUMADIN/WARFARIN INR THERAPY RANGESSTANDARD DOSE: 2.0 - 3.0 Includes: PROPHYLAXIS for venous thrombosis, systemic embolization; TREATMENT for venous thrombosis and/or pulmonary embolus.HIGH RISK: Target INR is 2.5-3.5 for patients with mechanical heart valves.CBC W/PLT COUNT & AUTO [id number] 04:09:00 Test Item Value Reference Range Interpretation Comments WHITE BLOOD CELL COUNT (BEAKER) 6.2 K/ L 3.5-10.5 (test code = 775) RED BLOOD CELL COUNT (BEAKER) 4.34 M/ L 3.93-5.22 (test code = 761) HEMOGLOBIN (BEAKER) (test code = 12.6 GM/DL 11.2-15.7 410) HEMATOCRIT (BEAKER) (test code = 38.9 % 34.1-44.9 411) MEAN CORPUSCULAR VOLUME (BEAKER) 89.6 fL 79.4-94.8 (test code = 753) MEAN CORPUSCULAR HEMOGLOBIN 29.0 pg 25.6-32.2 (BEAKER) (test code = 751) MEAN CORPUSCULAR HEMOGLOBIN CONC 32.4 GM/DL 32.2-35.5 (BEAKER) (test code = 752) RED CELL DISTRIBUTION WIDTH 12.3 % 11.7-14.4 (BEAKER) (test code = 412) PLATELET COUNT (BEAKER) (test 251 K/CU MM 150-450 code = 756) MEAN PLATELET VOLUME (BEAKER) 10.4 fL 9.4-12.3 (test code = 754) NUCLEATED RED BLOOD CELLS 0 /100 WBC 0-0 (BEAKER) (test code = 413) NEUTROPHILS RELATIVE PERCENT 50 % (BEAKER) (test code = 429) LYMPHOCYTES RELATIVE PERCENT 41 % (BEAKER) (test code = 430) MONOCYTES RELATIVE PERCENT 7 % (BEAKER) (test code = 431) EOSINOPHILS RELATIVE PERCENT 2 % (BEAKER) (test code = 432) BASOPHILS RELATIVE PERCENT 1 % (BEAKER) (test code = 437) NEUTROPHILS ABSOLUTE COUNT 3.08 K/ L 1.56-6.13 (BEAKER) (test code = 670) LYMPHOCYTES ABSOLUTE COUNT 2.54 K/ L 1.18-3.74 (BEAKER) (test code = 414) MONOCYTES ABSOLUTE COUNT (BEAKER) 0.41 K/ L 0.24-0.36 H (test code = 415) EOSINOPHILS ABSOLUTE COUNT 0.12 K/ L 0.04-0.36 (BEAKER) (test code = 416) BASOPHILS ABSOLUTE COUNT (BEAKER) 0.03 K/ L 0.01-0.08 (test code = 417) IMMATURE GRANULOCYTES-RELATIVE 1 % 0-1 PERCENT (BEAKER) (test code = 2801) PROTEIN C [id number] 10:44:00 Test Item Value Reference Range Interpretation Comments PROTEIN C ACTIVITY (BEAKER) (test 134.0 % 70.0-130.0 H code = 582) [id number] 19:54:00 Test Item Value Reference Range Interpretation Comments HOMOCYSTEINE (BEAKER) (test code = 8.8 umol/L 5.1-15.4 642) SCREEN, [id number] 16:47:00 Test Item Value Reference Range Interpretation Comments TEST URINE (BEAKER) (test Negative code = 583) MR, MRA PELVIS, WITHOUT FOLLOW WITH IV [id number] 09:34:00FINAL REPORT MRA/MRV of the pelvis, 05 February 2018 INDICATION: This is a 22 years old female, 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 TECHNIQUE: Joel Sportingova MRI scan. High-resolution gradient echo images were performed in the axial orientation. Thereafter, a non-ECG gated, gadolinium enhanced 3-D MRA/MRV of the pelvis was performed. Multi-planar gisel nstruction were performed using an independent workstation. Please refer to the contrast sheet scanned in the [employer] system for the amount and route of contrast given. FINDINGS: This study is not optimizing assessment of extravascular structures. In the available images, the partially visualised liver, and kidneys appears unremarkable. Bowel is incompletely assessed though no obvious bowel dilation is identified. No free air free fluid is identified. The bladder is slightly distended. The uterus is identified. No obvious abnormal adnexal masses seen though assessment is limited. Assessment of the soft tissue and musculoskeletal atrial structures are limited. The abdominal aorta is normal in course and calibre. No ectasia or aneurysmal dilation is seen. The common iliac, external iliac, and the common femoral arteries, and the visualised SFA, bilaterally, are widely patent. Better seen in the gradient echo images, the common iliac, external iliac, and the common femoral veins are patent. No venous thrombus is identified. In the left, no proximal venous dilation is seen and no venous collaterals are present. Note, the most distal left common iliac vein is very tiny/small in calibre, sandwiched between the vertebral body and the proximal right common iliac artery. CONCLUSIONS: 1. Unremarkable abdominal aorta. 2. The pelvic arteries are widely patent, bilaterally. 3. The associated pelvic veins are patent with no venous thrombosis identified. Note, the most distal left common iliac vein is very tiny/small in calibre, "sandwiched" between the vertebral body and the proximal right common iliac artery. Please see snapshot with arrows for details. The above imaging finding would suggest left common iliac vein compression, however, no proximal venous dilation is appreciated and no surrounding venous collaterals are seen and no thrombus is identified in the left pelvic venous system. At the time of dictation, it is uncertain patient have history of DVT in the left lower extremity. Haemodynamic significance of the left common iliac vein compression cannot be cannot be commented upon. Finally, theleft common iliac vein compression finding is also frequent seen in the CT scan performed for nonvascular reason. Therefore please kindly correlate clinically regarding the diagnosis of May Bradford syndrome. 4. Other findings as described above. This study is not optimizing assessment of extravascular structures. Signed: Isreal Diane MDReport Verified Date/Time: 02/06/2018 09:34:36 Reading Location: [place] [address] Cardiology MRI URINALYSIS W/ REFLEX URINE [id number] 12:55:00 Test Item Value Reference Range Interpretation Comments COLOR (BEAKER) (test code = 470) Light Yellow CLARITY (BEAKER) (test code = Clear 469) SPECIFIC GRAVITY UA (BEAKER) 1.002 1.001-1.035 (test code = 468) PH UA (BEAKER) (test code = 467) 5.5 5.0-8.0 PROTEIN UA (BEAKER) (test code = Negative Negative 464) GLUCOSE UA (BEAKER) (test code = Negative Negative 365) KETONES UA (BEAKER) (test code = Negative Negative 371) BILIRUBIN UA (BEAKER) (test code Negative Negative = 462) BLOOD UA (BEAKER) (test code = Negative Negative 461) NITRITE UA (BEAKER) (test code = Negative Negative 465) LEUKOCYTE ESTERASE UA (BEAKER) Trace Negative A (test code = 466) UROBILINOGEN UA (BEAKER) (test 0.2 mg/dL 0.2-1.0 code = 463) RBC UA (BEAKER) (test code = < /HPF 519) WBC UA (BEAKER) (test code = 4 /HPF 520) BACTERIA (BEAKER) (test code = Rare 517) SQUAMOUS EPITHELIAL (BEAKER) 1 /HPF (test code = 516) SOURCE(BEAKER) (test code = 2795) [id number] 04:40:00 Test Item Value Reference Range Interpretation Comments PHOSPHORUS (BEAKER) (test code = 4.3 mg/dL 2.3-4.7 604) [id number] 04:40:00 Test Item Value Reference Range Interpretation Comments MAGNESIUM (BEAKER) (test code = 2.1 mg/dL 1.6-2.6 627) BASIC METABOLIC [id number] 04:40:00 Test Item Value Reference Range Interpretation Comments SODIUM (BEAKER) 137 meq/L 136-145 (test code = 381) POTASSIUM (BEAKER) 4.0 meq/L 3.5-5.1 (test code = 379) CHLORIDE (BEAKER) 108 meq/L 98-107 H (test code = 382) CO2 (BEAKER) (test 22 meq/L 22-29 code = 355) BLOOD UREA NITROGEN 13 mg/dL 7-21 (BEAKER) (test code = 354) CREATININE (BEAKER) 0.72 mg/dL 0.57-1.25 (test code = 358) GLUCOSE RANDOM 102 mg/dL 70-105 (BEAKER) (test code = 652) CALCIUM (BEAKER) 9.2 mg/dL 8.4-10.2 (test code = 697) EGFR (BEAKER) (test 102 mL/min/1.73 ESTIM ATED GFR IS code = 1092) sq m NOT ACCURATE CREATININE CLEARANCE IN PREDICTING GLOMERULAR FILTRATION RATE . ESTIMATED GFR I S NOT APPLICABLE FOR DIALYSIS PATIEN TS. CBC W/PLT COUNT & AUTO [id number] 04:17:00 Test Item Value Reference Range Interpretation Comments WHITE BLOOD CELL COUNT (BEAKER) 6.8 K/ L 3.5-10.5 (test code = 775) RED BLOOD CELL COUNT (BEAKER) 4.25 M/ L 3.93-5.22 (test code = 761) HEMOGLOBIN (BEAKER) (test code = 12.3 GM/DL 11.2-15.7 410) HEMATOCRIT (BEAKER) (test code = 37.5 % 34.1-44.9 411) MEAN CORPUSCULAR VOLUME (BEAKER) 88.2 fL 79.4-94.8 (test code = 753) MEAN CORPUSCULAR HEMOGLOBIN 28.9 pg 25.6-32.2 (BEAKER) (test code = 751) MEAN CORPUSCULAR HEMOGLOBIN CONC 32.8 GM/DL 32.2-35.5 (BEAKER) (test code = 752) RED CELL DISTRIBUTION WIDTH 12.4 % 11.7-14.4 (BEAKER) (test code = 412) PLATELET COUNT (BEAKER) (test 256 K/CU MM 150-450 code = 756) MEAN PLATELET VOLUME (BEAKER) 10.8 fL 9.4-12.3 (test code = 754) NUCLEATED RED BLOOD CELLS 0 /100 WBC 0-0 (BEAKER) (test code = 413) NEUTROPHILS RELATIVE PERCENT 52 % (BEAKER) (test code = 429) LYMPHOCYTES RELATIVE PERCENT 37 % (BEAKER) (test code = 430) MONOCYTES RELATIVE PERCENT 8 % (BEAKER) (test code = 431) EOSINOPHILS RELATIVE PERCENT 3 % (BEAKER) (test code = 432) BASOPHILS RELATIVE PERCENT 0 % (BEAKER) (test code = 437) NEUTROPHILS ABSOLUTE COUNT 3.49 K/ L 1.56-6.13 (BEAKER) (test code = 670) LYMPHOCYTES ABSOLUTE COUNT 2.49 K/ L 1.18-3.74 (BEAKER) (test code = 414) MONOCYTES ABSOLUTE COUNT (BEAKER) 0.53 K/ L 0.24-0.36 H (test code = 415) EOSINOPHILS ABSOLUTE COUNT 0.20 K/ L 0.04-0.36 (BEAKER) (test code = 416) BASOPHILS ABSOLUTE COUNT (BEAKER) 0.03 K/ L 0.01-0.08 (test code = 417) IMMATURE GRANULOCYTES-RELATIVE 0 % 0-1 PERCENT (BEAKER) (test code = 2801) MR, BRAIN, WITHOUT [id number] 22:33:00Reason for exam:->Stroke evaluationFINAL REPORT Exam: MRI brain without contrast. MR, MRA Neck without IV contrast. Comparison: None. Clinical indication: Stroke. Stroke evaluation Technique: Multiplanar multi sequential MR imaging of the brain was performed without the administration of intravenous contrast. 2 D and 3-D madx-ug-ckcuik MRA of the neck was provided with maximal intensity projection 3-D reconstructions of the cervical arterial vasculatures. Findings: Brain MRI:There is no intracranial mass, mass effect, extra-axial collection, hydrocephalus or herniation. There is no restricted diffusion to suggest an acute infarct. There is no abnormality on susceptibility sequences to suggest hemorrhage or hemosiderin deposition. The skull base flow-voids are seen in keeping with their patency. The visualized paranasal sinuses and mastoid air cells are clear. The orbits, sella and parasellar regions are unremarkable. The craniocervical junction is normal. Neck MRA: There is no vessel occlusion or NASCET-quantifiable stenosis in the extracranial carotid or vertebral arterial circulations. Flow is antegrade in both vertebral arteries. Impression:Negative brain MRI and neck MRA. Signed: Sherie Manuel MDReportVerified Date/Time: 02/03/2018 22:33:06 Reading Location: [address] Reading Room MR, MRA, NECK, WITHOUT IV [id number] 22:33:00Reason for exam:->Stroke evalFINAL REPORT Exam: MRI brain without contrast. MR, MRA Neck without IV contrast. Comparison: None. Clinical indication: Stroke. Stroke evaluation Technique: Multiplanar multi sequential MR imaging of the brain was performed without the administration of intravenous contrast. 2 D and 3-D pmer-hv-buxxrv MRA of the neck was provided with maximal intensity projection 3- D reconstructions of the cervical arterial vasculatures. Findings: Brain MRI:There is no intracranial mass, mass effect, extra-axial collection, hydrocephalus or herniation. There is no restricted diffusion to suggest an acute infarct. There is no abnormality on susceptibility sequences to suggest hemorrhage or hemosiderin deposition. The skull base flow-voids are seen in keeping with their patency. The visualized paranasal sinuses and mastoid air cells are clear. The orbits, sella and parasellar regions are unremarkable. The craniocervical junction is normal. Neck MRA: There is no vessel occlusion or NASCET-quantifiable stenosis in the extracranial carotid or vertebral arterial circulations. Flow is antegrade in both vertebral arteries. Impression:Negative brain MRI and neck MRA. Signed: Sherie Manuel MDReportVerified Date/Time: 02/03/2018 22:33:06 Reading Location: [address] Reading Room RAPID DRUG SCREEN, [id number] 10:41:00 Test Item Value Reference Range Interpretation Comments BARBITURATE URINE (BEAKER) (test Negative Negative code = 725) BENZODIAZEPINE SCREEN URINE (BEAKER) Negative Negative (test code = 726) COCAINE (METAB.) SCREEN (BEAKER) Negative Negative (test code = 1164) METHADONE SCREEN (BEAKER) (test code Negative Negative = 1436) OPIATE SCREEN URINE (BEAKER) (test Negative Negative code = 734) CANNABINOID SCREEN URINE (BEAKER) Negative Negative (test code = 727) AMPH/METHAMPH SCREEN (BEAKER) (test Negative Negative code = 1438) PHENCYCLIDINE SCREEN URINE (BEAKER) Negative Negative (test code = 608) OXYCODONE SCREEN URINE (BEAKER) Negative Negative (test code = 2761) DRUG CUTOFF CONC.Cocaine 300 ng/mL Cannabinoid 50 ng/mL Benzodiazepine 200 ng/mLBarbiturate 200 ng/mLPhencyclidine 25 ng/mLOpiate 300 ng/mLMethadone 300 ng/mLAmphetamine/ 1000 ng/mL MethamphetamineOxycodone 300 ng/mLThis assay provides an unconfirmed qualitative test result for the clinical managementof patients in emergency situations. Chain of custody not maintained. Some pcvh-mif-gcojoyu medications, as well as adulterants, may cause inaccurate results. Clinical correlation should be applied. A more comprehensive drug screen or confirmation of a detected drug may be performed upon request. HEMOGLOBIN [id number] 08:50:00 Test Item Value Reference Range Interpretation Comments HEMOGLOBIN A1C ([facility]) (test code = 4.9 % 4.3-6.1 368) POCT-GLUCOSE [id number] 08:26:00 Test Item Value Reference Range Interpretation Comments POC-GLUCOSE METER 78 mg/dL 70-110 TESTED AT [facility] ([facility]) (test code = DORINDA Bearden [facility] [id number]) CREATINE KINASE (CK), TOTAL AND [id number] 04:45:00 Test Item Value Reference Range Interpretation Comments CREATINE KINASE TOTAL (BEAKER) 72 U/L 29-200 (test code = 380) CREATINE KINASE-MB (BEAKER) (test 0.5 ng/mL 0.0-6.6 code = 750) CREATINE KINASE-MB INDEX (BEAKER) 0.7 % (test code = 395) CK-MB Reference Range:<6.7 Normal6.7-10.0 Borderline>10.0 AbnormalTROPONIN [id number] 04:45:00 Test Item Value Reference Range Interpretation Comments TROPONIN I (BEAKER) (test code = 397) < ng/mL 0.00-0.03 Troponin I (TnI) levels must be interpreted in the context of the presenting symptoms and the clinical findings. Elevated TnI levels indicate myocardial damage, but are not specific for ischemic heart disease. Elevated TnI levels are seen in patients with other cardiac conditions (including myocarditis and congestive heart failure), and slight TnI elevations occur in patients with other conditions, including sepsis, renal failure, acidosis, acute neurological disease, and persistent tachyarrhythmia.[id number] 04:37:00 Test Item Value Reference Range Interpretation Comments PHOSPHORUS (BEAKER) (test code = 3.3 mg/dL 2.3-4.7 604) [id number] 04:37:00 Test Item Value Reference Range Interpretation Comments MAGNESIUM (BEAKER) (test code = 2.1 mg/dL 1.6-2.6 627) BASIC METABOLIC [id number] 04:37:00 Test Item Value Reference Range Interpretation Comments SODIUM (BEAKER) 136 meq/L 136-145 (test code = 381) POTASSIUM (BEAKER) 4.0 meq/L 3.5-5.1 (test code = 379) CHLORIDE (BEAKER) 107 meq/L 98-107 (test code = 382) CO2 (BEAKER) (test 21 meq/L 22-29 L code = 355) BLOOD UREA NITROGEN 9 mg/dL 7-21 (BEAKER) (test code = 354) CREATININE (BEAKER) 0.70 mg/dL 0.57-1.25 (test code = 358) GLUCOSE RANDOM 101 mg/dL 70-105 (BEAKER) (test code = 652) CALCIUM (BEAKER) 9.4 mg/dL 8.4-10.2 (test code = 697) EGFR (BEAKER) (test 106 mL/min/1.73 ESTIM ATED GFR IS code = 1092) sq m NOT ACCURATE CREATININE CLEARANCE IN PREDICTING GLOMERULAR FILTRATION RATE . ESTIMATED GFR I S NOT APPLICABLE FOR DIALYSIS PATIEN TS. LIPID [id number] 04:37:00 Test Item Value Reference Range Interpretation Comments TRIGLYCERIDES (BEAKER) (test code = 54 mg/dL 540) CHOLESTEROL (BEAKER) (test code = 158 mg/dL 631) HDL CHOLESTEROL (BEAKER) (test code 55 mg/dL = 976) LDL CHOLESTEROL CALCULATED (BEAKER) 92 mg/dL (test code = 633) Triglyceride Reference Range: Low Risk <150 Borderline 150-199 High Risk 200- 499 Very High Risk >=500Cholesterol Reference Range: Low Risk <200 Borderline 200-239 High Risk >240HDL Cholesterol Reference Range: Low Risk >=60 High Risk <40LDL Cholesterol Reference Range: Optimal <100 Near Optimal 100-129 Borderline 130-159 High 160-189 Very High >=190CBC W/PLT COUNT & AUTO [id number] 04:20:00 Test Item Value Reference Range Interpretation Comments WHITE BLOOD CELL COUNT (BEAKER) 7.7 K/ L 3.5-10.5 (test code = 775) RED BLOOD CELL COUNT (BEAKER) 4.36 M/ L 3.93-5.22 (test code = 761) HEMOGLOBIN (BEAKER) (test code = 12.7 GM/DL 11.2-15.7 410) HEMATOCRIT (BEAKER) (test code = 38.1 % 34.1-44.9 411) MEAN CORPUSCULAR VOLUME (BEAKER) 87.4 fL 79.4-94.8 (test code = 753) MEAN CORPUSCULAR HEMOGLOBIN 29.1 pg 25.6-32.2 (BEAKER) (test code = 751) MEAN CORPUSCULAR HEMOGLOBIN CONC 33.3 GM/DL 32.2-35.5 (BEAKER) (test code = 752) RED CELL DISTRIBUTION WIDTH 12.2 % 11.7-14.4 (BEAKER) (test code = 412) PLATELET COUNT (BEAKER) (test 240 K/CU MM 150-450 code = 756) MEAN PLATELET VOLUME (BEAKER) 10.6 fL 9.4-12.3 (test code = 754) NUCLEATED RED BLOOD CELLS 0 /100 WBC 0-0 (BEAKER) (test code = 413) NEUTROPHILS RELATIVE PERCENT 57 % (BEAKER) (test code = 429) LYMPHOCYTES RELATIVE PERCENT 33 % (BEAKER) (test code = 430) MONOCYTES RELATIVE PERCENT 8 % (BEAKER) (test code = 431) EOSINOPHILS RELATIVE PERCENT 1 % (BEAKER) (test code = 432) BASOPHILS RELATIVE PERCENT 1 % (BEAKER) (test code = 437) NEUTROPHILS ABSOLUTE COUNT 4.36 K/ L 1.56-6.13 (BEAKER) (test code = 670) LYMPHOCYTES ABSOLUTE COUNT 2.56 K/ L 1.18-3.74 (BEAKER) (test code = 414) MONOCYTES ABSOLUTE COUNT (BEAKER) 0.61 K/ L 0.24-0.36 H (test code = 415) EOSINOPHILS ABSOLUTE COUNT 0.07 K/ L 0.04-0.36 (BEAKER) (test code = 416) BASOPHILS ABSOLUTE COUNT (BEAKER) 0.04 K/ L 0.01-0.08 (test code = 417) IMMATURE GRANULOCYTES-RELATIVE 0 % 0-1 PERCENT (BEAKER) (test code = 4184)
[2022-08-04] MEDS ORDERED: HYDROCOD 2.5mg-ACETAMIN 108mg/5mL Soln ONE (20:25)
[2022-08-04] MEDS ORDERED: LIDOCAINE VISCOUS 2% SOLN 15 ML UDC ONE (20:25)
[2022-08-04] MEDS ORDERED: NA CHLORIDE 0.9% 1,000 ML ONE (20:26)
[2022-08-04 20:54] LABS: Urine Blood 1+ (Negative); Urine Glucose Negative (Negative); Urine Protein 1+ (Negative); Urine Specific Gravity 1.025 (1.005-1.030)
[2022-08-04 21:11] LABS: Absolute Lymphocytes (CBC) 0.5 K/uL (0.7-4.9); Hematocrit 40.6 % (36.0-45.0); Lymphocytes % 2.1 % (15.3-44.8); MCV 87.6 fL (80-100); MPV 8.6 fL (7.6-11.3); RBC Red Blood Cell Count 4.63 M/uL (3.86-4.86)
[2022-08-04 21:39] LABS: Urine Specific Gravity/Preg 1.025 (1.005-1.030)
[2022-08-04 21:43] LABS: Potassium 3.7 mmol/L (3.5-5.1)
[2022-08-04 21:47] LABS: Toxic Granulation 1+
[2022-08-04 21:48] LABS: Blood Morphology Comment NOT SEEN (NOT SEEN); Platelet Estimate ADEQ
[2022-08-04 21:52] LABS: Urine Bacteria <20 /HPF (<20); Urine Mucus 2+ /HPF (None Seen)
--- NOTE | 2022-08-04 22:14 | RAD REPORT ---
EXAM DESCRIPTION: CT - Soft Tissue Neck W/Contr CLINICAL HISTORY: sore throat, dysphagia COMPARISON: Neck Angio dated 02/02/[address] scans are performed using dose optimization technique as appropriate and may includ e automated exposure control or mA/KV adjustment according to patient size. FINDINGS: Nasopharyngeal tissues are normal in appearance. Fossa Rosenmller are normal. Moderate enlargement in both palatine tonsils. No prevertebral fluid. Salivary glands are normal in appearance. Lymph node enlargement is seen along both jugular digastric chains and in both submandibular locations. Upper lung acuna are clear. Included intracranial contents are unremarkable. IMPRESSION: Moderate enlargement of both palatine tonsils. No peritonsillar abscess or prevertebral abscess. Presumably reactive lymphadenopathy in both cervical chains bilateral submandibular locations. Consid er re-evaluation of these lymph nodes in 3 months to ensure resolution.
--- NOTE | 2022-08-04 22:39 | ER ---
Nurse's Notes [facility] Name: Alexander Schneider Age: 27 yrs Sex: Female : 1995 Arrival Date: 08/04/2022 Time: 18:54 Bed 16 Private MD: Diagnosis: Acute streptococcal tonsillitis, unspecified Presentation: 08/04 19:43 Chief complaint: Patient states: I have been sick for the past few days. It hurts to kd3 swallow. I went to urgent care, they said my tonsils are really swollen and they were scared it was going to close my airway so they sent me here. It is hard to breathe. Coronavirus screen: Vaccine status: Patient reports being unvaccinated. Ebola Screen: No symptoms or risks identified at this time. Initial Sepsis Screen: Does the patient meet any 2 criteria? No. Patient's initial sepsis screen is negative. Does the patient have a suspected source of infection? No. Patient's initial sepsis screen is negative. Risk Assessment: Do you want to hurt yourself or someone else? Patient reports no desire to harm self or others. Onset of symptoms was August 04, 2022. 19:43 Method Of Arrival: Ambulatory kd3 19:43 Acuity: AMARILIS 3 kd3 Triage Assessment: 19:46 General: Appears uncomfortable, Behavior is calm, cooperative. Pain: Complains of pain kd3 in uvula, left aspect of posterior pharynx and right aspect of posterior pharynx. Respiratory: Reports difficulty breathing Onset: The symptoms/episode began/occurred today, the patient has moderate shortness of breath. 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 - Social history:: Smoking status: Reported history of juuling and/or vaping. Screenin:57 [facility] ED Fall Risk Assessment (Adult) History of falling in the last 3 months, aa9 including since admission No falls in past 3 months (0 pts) Confusion or Disorientation No (0 pts) Intoxicated or Sedated No (0 pts) Impaired Gait No (0 pts) Mobility Assist Device Used No (0 pt) Altered Elimination No (0 pt) Score/Fall Risk Level 0 - 2 = Low Risk Oriented to surroundings, Maintained a safe environment. Abuse screen: Denies threats or abuse. Denies injuries from another. Nutritional screening: No deficits noted. Tuberculosis screening: No symptoms or risk factors identified. Assessment: 21:56 General: Appears in no apparent distress. comfortable, Behavior is calm, cooperative, aa9 appropriate for age. Pain: Complains of pain in neck. Cardiovascular: Rhythm is regular. Respiratory: Airway is patent Respiratory effort is even, unlabored. GI: No signs and/or symptoms were reported involving the gastrointestinal system. : No signs and/or symptoms were reported regarding the genitourinary system. EENT: Throat is reddened has enlarged tonsils. Derm: Skin is intact, is healthy with good turgor. 23:18 Respiratory: Breath sounds are clear. aa9 23:18 Reassessment: No changes from previously documented assessment. Patient and/or family aa9 updated on plan of care and expected duration. Pain level reassessed. Patient is alert, oriented x 3, equal unlabored respirations, skin warm/dry/pink. Patient states feeling better. Vital Signs: 19:43 BP 125 / 71; Pulse 104; Resp 16; Temp 99.5(O); Pulse Ox 97% on R/A; Weight 63.5 kg; kd3 Height 5 ft. (152.40 cm); Pain 7/10; 19:54 BP 117 / 83; Pulse 104; Resp 19; Pulse Ox 99% on R/A; kd3 19:43 Body Mass Index 27.34 (63.50 kg, 152.40 cm) kd3 ED Course: 18:54 Patient arrived in ED. am2 19:13 Massimo Gastelum PA is PHCP. cp 19:13 Declan Proctor MD is Attending Physician. cp 19:46 Triage completed. kd3 19:46 Arm band placed on right wrist. kd3 19:56 Attending Physician role handed off by Declan Proctor MD margaret 19:56 Massimo Kim MD is Attending Physician. margaret 21:08 Strep Sent. aa9 21:08 [place] Screen Profile Sent. aa9 21:08 BMP Sent. aa9 21:09 CBC with Diff Sent. aa9 21:41 Xin Cook, RN is Primary Nurse. aa9 21:57 Patient has correct armband on for positive identification. Bed in low position. Call aa9 light in reach. 22:07 CT Soft Tissue Neck W/contr In Process Unspecified. EDMS 23:16 No provider procedures requiring assistance completed. IV discontinued, intact, aa9 bleeding controlled, No redness/swelling at site. Pressure dressing applied. Administered Medications: 20:26 Drug: Viscous Lidocaine Liquid (4 %) 5 ml Route: Mucous Membrane; aa9 20:54 Drug: NS 0.9% 1000 ml Route: IV; Rate: 1 bolus; Site: left antecubital; aa9 21:08 Drug: Lortab Liquid 10 ml Route: PO; aa9 21:36 Follow up: Response: No adverse reaction aa9 22:40 Drug: Decadron - Dexamethasone 10 mg Route: IVP; Site: left forearm; aa9 23:13 Follow up: Response: No adverse reaction aa9 22:48 Drug: Clindamycin 900 mg Route: IVPB; Infused Over: 30 mins; Site: left antecubital; aa9 23:13 Follow up: Response: No adverse reaction; IV Status: Completed infusion; IV Intake: [id number] Medication: 21:57 VIS not applicable for this client. aa9 Intake: 23:13 IV: 50ml; Total: 50ml. aa9 Outcome: 22:39 Discharge ordered by . cp 23:16 Discharged to home ambulatory. aa9 23:16 Condition: stable 23:16 Discharge instructions given to patient, Instructed on discharge instructions, follow up and referral plans. medication usage, Demonstrated understanding of instructions, follow-up care, medications, Prescriptions given X 3. 23:18 Patient left the ED. aa9 Signatures: Dispatcher [employer] EDMS Massimo Kim MD MD cha Page, Corey PA PA Christen Steel am2 Mira Davies RN RN kd3 Xin Cook, RN RN aa9
--- NOTE | 2022-08-04 22:39 | EDPHYS ---
Physician Documentation [facility] Name: Alexander Schneider Age: 27 yrs Sex: Female : 1995 Arrival Date: 08/04/2022 Time: 18:54 Bed 16 Private MD: ED Physician Massimo Kim HPI: 08/04 20:10 This 27 yrs old Female presents to ER via Ambulatory with complaints of Breathing cp Difficulty, Sore Throat. 20:10 The patient presents with sore throat, dysphagia. cp 20:10 The patient describes throat pain as constant. Onset: The symptoms/episode cp began/occurred for past few days. 20:10 Duration: The symptoms are continuous, and are steadily getting worse. Patient reports cp she was referred to ED by Urgent Care for swollen tonsils. Reports tested for strep, mono and the tests were negative. Given antibiotic injection and steroid. SSN/SSBN [employer]: 19:46 LMP 07/07/2022 kd3 Historical: - Allergies: 19:46 No Known Allergies; kd3 - PMHx: 19:46 murmur; kd3 - Immunization history:: Adult Immunizations up to date. - Social history:: Smoking status: Reported history of juuling and/or vaping. ROS: 20:15 Constitutional: Negative for body aches, chills, fever, poor PO intake. cp 20:15 Cardiovascular: Negative for chest pain, palpitations. cp 20:15 Eyes: Negative for injury, pain, redness, and discharge. cp 20:15 ENT: Positive for difficulty swallowing, sore throat, Negative for drainage from ear(s), ear pain, difficulty handling secretions, hoarseness. 20:15 Respiratory: Negative for cough, shortness of breath, wheezing. 20:15 Abdomen/GI: Negative for abdominal pain, vomiting, diarrhea, constipation. 20:15 Neuro: Negative for altered mental status, dizziness, weakness. 20:15 All other systems are negative. Exam: 20:20 Constitutional: The patient appears in no acute distress, alert, awake, non-toxic, well cp developed, well nourished. 20:20 Head/Face: Normocephalic, atraumatic. cp 20:20 Eyes: Periorbital structures: appear normal, Conjunctiva: normal, no exudate, no injection, Sclera: no appreciated abnormality, Lids and lashes: appear normal, bilaterally. 20:20 ENT: External ear(s): are unremarkable, Ear canal(s): are normal, TM's: dullness, bilaterally, Nose: is normal, Mouth: Lips: moist, Oral mucosa: moist, Posterior pharynx: Airway: no evidence of obstruction, patent, Tonsils: bilaterally enlarged, with erythema, with exudate, appear 3+ in size, Uvula: midline, erythema, erythema, that is moderate. 20:20 Neck: ROM/movement: is normal, is supple, without pain, no range of motions limitations, no meningismus, Lymph nodes: lymphadenopathy is appreciated, anterior cervical nodes. 20:20 Chest/axilla: Inspection: normal. 20:20 Cardiovascular: Rate: tachycardic, Rhythm: regular, JVD: is not appreciated. 20:20 Respiratory: the patient does not display signs of respiratory distress, Respirations: normal, no use of accessory muscles, no retractions, labored breathing, is not present, Breath sounds: are clear throughout, no decreased breath sounds, no stridor, no wheezing. 20:20 Abdomen/GI: Exam negative for discomfort, distension, guarding, Inspection: abdomen appears normal. 20:20 Skin: rash can be described as erythematous, papular, on the chest. 20:20 Neuro: Orientation: to person, place \T\ time. Mentation: is normal, Motor: moves all fours, strength is normal. Vital Signs: 19:43 BP 125 / 71; Pulse 104; Resp 16; Temp 99.5(O); Pulse Ox 97% on R/A; Weight 63.5 kg; kd3 Height 5 ft. (152.40 cm); Pain 7/10; 19:54 BP 117 / 83; Pulse 104; Resp 19; Pulse Ox 99% on R/A; kd3 19:43 Body Mass Index 27.34 (63.50 kg, 152.40 cm) kd3 MDM: 19:56 Patient medically screened. [facility] 22:38 Data reviewed: vital signs, nurses notes, lab test result(s), radiologic studies, CT cp scan. 22:38 Differential diagnosis: sanjana's angina, mononucleosis, peritonsillar abscess cp pharyngitis, tonsillitis, upper respiratory infection, uvulitis. Consideration of Admission/Observation Escalation of care including admission/observation considered. I considered the following discharge prescriptions or medication management in the emergency department Medications were administered in the Emergency Department. See MAR. Counseling: I had a detailed discussion with the patient and/or guardian regarding: the historical points, exam findings, and any diagnostic results supporting the discharge/admit diagnosis, lab results, radiology results, the need for outpatient follow up, an ENT specialist, to return to the emergency department if symptoms worsen or persist or if there are any questions or concerns that arise at home. ED course: VSS. Patient tolerating po fluids, pain improved, and no signs of respiratory distress. Will discharge to home for continued monitoring with instructions to return to ED worsening symptoms. 08/04 20:02 Order name: CBC with Diff; Complete Time: 22:20 08/04 22:20 Interpretation: Normal except: WBC 22.80; NICOLLE% 95.2; LYM% 2.1; MN% 2.3; NEUT A 21.7; cp LYMA 0.5. 08/04 20:02 Order name: BMP; Complete Time: 22:20 08/04 22:21 Interpretation: Normal except: GLUC 109. 08/04 20:02 Order name: [place] Screen Profile; Complete Time: 22:20 08/04 22:42 Interpretation: Reviewed. 08/04 20:02 Order name: Strep; Complete Time: 22:20 08/04 22:21 Interpretation: Reviewed. 08/04 20:55 Order name: Urine Dipstick-Ancillary; Complete Time: 21:14 [facility] 08/04 20:56 Order name: Urine Microscopic Only; Complete Time: 22:20 4 08/04 22:21 Interpretation: Normal except: UWBC 10-20; URBC 5-10. 08/04 20:56 Order name: Urine --Ancillary (enter results); Complete Time: 22:20 [facility] 08/04 21:17 Order name: CT Soft Tissue Neck W/contr; Complete Time: 22:20 08/04 21:48 Order name: Manual Differential; Complete Time: 22:20 [facility] 08/04 22:21 Interpretation: Reviewed. 08/04 21:56 Order name: Urine Culture [facility] 08/04 20:02 Order name: IV; Complete Time: 20:55 08/04 20:02 Order name: Urine Test (obtain specimen); Complete Time: 20:55 cp 08/04 20:02 Order name: Urine Dipstick-Ancillary (obtain specimen); Complete Time: 20:55 cp Administered Medications: 20:26 Drug: Viscous Lidocaine Liquid (4 %) 5 ml Route: Mucous Membrane; aa9 20:54 Drug: NS 0.9% 1000 ml Route: IV; Rate: 1 bolus; Site: left antecubital; aa9 21:08 Drug: Lortab Liquid 10 ml Route: PO; aa9 21:36 Follow up: Response: No adverse reaction aa9 22:40 Drug: Decadron - Dexamethasone 10 mg Route: IVP; Site: left forearm; aa9 23:13 Follow up: Response: No adverse reaction aa9 22:48 Drug: Clindamycin 900 mg Route: IVPB; Infused Over: 30 mins; Site: left antecubital; aa9 23:13 Follow up: Response: No adverse reaction; IV Status: Completed infusion; IV Intake: [id number] Disposition Summary: 08/04/22 22:39 Discharge Ordered Location: Home cp Problem: new cp Symptoms: have improved cp Condition: Stable cp Diagnosis - Acute streptococcal tonsillitis, unspecified cp Followup: cp - With: Emergency Department - When: As needed - Reason: Worsening of condition Discharge Instructions: - Discharge Summary Sheet cp - Strep Throat, Adult cp - Tonsillitis cp Forms: - Medication Reconciliation Form cp - Thank You Letter cp - Antibiotic Education cp - Prescription Opioid Use cp - Work release form aa9 Prescriptions: - Lidocaine Viscous - take 5 milliliter by ORAL route every 4-6 hours; 1 bottle; Refills: 0, Product cp Selection Permitted - Clindamycin HCl 300 mg Oral Capsule - take 1 capsule by ORAL route every 6 hours for 10 days; 40 capsule; Refills: 0, cp Product Selection Permitted - Ibuprofen 800 mg Oral Tablet - take 1 tablet by ORAL route every 8 hours As needed take with food; 30 tablet; cp Refills: 0, Product Selection Permitted Signatures: Dispatcher [employer] Massimo Dexter MD MD cha Page, Corey, PA PA cp Mira Davies RN RN kd3 Xin Cook RN RN aa9
[2022-08-04] MEDS ORDERED: CLINDAMYCIN 900MG/D5W 900 MG/50 ML IVPB IV ONE (22:43)
[2022-08-04] MEDS ORDERED: dexAMETHasone 10 MG/ML VIAL ONE (22:43)
[2022-08-04 23:29] VITALS: TEMP 99.5
[2022-08-04 23:30] VITALS: BP 117/83; O2SAT 99
== END 2022-08-04 23:18 | disposition home or self-care (01) ==
LOC: ER 18:53
DX: J03.00 Acute streptococcal tonsillitis, unspecified (principal)
CPT/HCPCS: 36415; 70491; 80048; 81003; 81015; 81025; 85025; 86308; 87081; 87086; 87088; J1100; J7030

== ENCOUNTER 2022-12-16 12:15 | Emergency (ER) | payer SELFPAY ==
--- OUTSIDE RECORDS SUMMARY | 2022-12-16 12:22 | XMS REPORT | Continuity of Care Document ---
:1995 Author Organization [facility] t Address [address] [place] [address] Care Team Providers Name Role Phone No, Pcp [facility] Primary Care Physician Unavailable Serafin Torres Attending [...] TIA Disease Active [facility] (transient (transient [address] ischemic ischemic 00:00: Medica l attack) attack) 00 Center Allergies, Adverse Reactions, Alerts Allergy Allergy Status Severity Reaction(s) Onset Inactive Treating Comm ents Source Name Type Date Date Clinician No Known DA Active [facility] Allergie 5-03 Clear s 00:00: Augustin [address] [place] [address] Social History Social Habit Start Date Stop Date Quantity Comments Source History SDOH [facility] History SDOH [facility] History SDOH [facility] Alcohol Binge [facility] [facility] Alcohol intake 2018-02-12 2018-02-12 [facility] (finding) Tobacco use and 2018-02-03 2018-02-03 Smokeless tobacco [facility] exposure 00:[facility]00 [facility]:00 non-user [facility] Alcohol Comment 2018-02-03 2018-02-03 maybe once/month [facility] 00:00[facility]00 [facility] Sex Assigned At [address] 00:00:00 [facility]:00 [facility] Smoking Status Start Date Stop Date Source Never smoked tobacco [facility] Medications Ordered Filled Start Stop Current Ordering Indication Dosage Frequency Signature Comments Components Source Medication Medication Date Date Medication? Clinician (SIG) Name Name aspirin 81 Yes 81mg QD Take 1 [facility] chewable 8-11 tablet (81 [facility] tablet 00:00: mg total) Medica l 00 by mouth Center daily. aspirin 81 Yes 81mg QD Take 1 [facility] chewable 8-11 tablet (81 [facility] tablet 00:00: mg total) Medica l 00 by mouth Center daily. aspirin 81 Yes 81mg QD Take 1 [facility] chewable 8-11 tablet (81 [facility] tablet 00:00: mg total) Medica l 00 by mouth Center daily. Procedures This patient has no known procedures. Encounters Start End Encounter Admission Attending Care Care Encounter Source Date/Time Date/Time Type Type Clinicians Facility Department ID 2021-11-04 2021-11-04 Emergency EM Brian, [facility] [id number] [facility] 08:33:00 08:33:00 [place] [id number] Cl [facility] Results Test Description Test Time Test Comments [...] OK? YesLot # of HCG Test Kit: [id number] Date of Kit: 02/01/23Test Performed by: Truong Perfomed on: 11/04/21UA DIPSTICK [id number] 08:56:00 Test Item Value Reference Range Interpretation Comments UA GLUCOSE DIPSTIC POC NEGATIVE NEGATIVE (test code = GLUUP) UA BILIRUBIN DIPSTICK NEGATIVE NEGATIVE (test code = BILU) UA KETONE DIPSTICK POC NEGATIVE NEGATIVE (test code = KETUP) UA SPECIFIC GRAVITY (test 1.005 1.005-1.030 N code = SGU) UA BLOOD DIPSTIC POC 1+ NEGATIVE A Perform ed by (test code = BLUP) certified game operator at [facility] ed [facility] UA PH DIPSTIC POC (test 7 5.0-7.0 N code = PHUP) UA PROTEIN DIPSTICK POC NEGATIVE NEGATIVE (test code = DPROUP) UA UROBILINIOGEN QUAL NORMAL 0.2-1.0 (test code = UROQL) UA NITRITE DIPSTICK POC NEGATIVE Negative (test code = NITUP) UA LEUKOCYTE ESTERASE W TRACE NEGATIVE A REFLEX (test code = LEUUR) - CT ABD PELVIS W/O [id number] [facility] 1995 Sex: F Name: frances schneider FSED : 1995 Age/S: 26 / F [address] [facility] Unit #: [id number] Loc: [place] [address] Phys: Serafin Torres MD Acct: [id number] Dis Date: Status: REG ER PHONE #: Exam Date: 11/04/2021 0907 FAX #: Reason: flank pain EXAMS: CPT CODE: [id number] CT ABD PELVIS W/O CONT 79554 PROCEDURE INFORMATION: Exam: CT Abdomen And Pelvis Without Contrast Exam date and time:11/04/2021 9:00 AM Age: 26 years old Clinical indication: Abdominal pain; Other: Flank pain TECHNIQUE:Imaging protocol: Computed tomography of the abdomen and pelvis without contrast. Radiation optimization: All CT scans at this facility use at least one of these dose optimization techniques: automated exposure control; mA and/or kV adjustment per patient size (includes targeted exams where dose is matched to clinical indication); or iterative reconstruction. COMPARISON: No relevant prior studies available. FINDINGS: Limitations: Evaluation of abdominal viscera and vasculature may be limited by thelack of intravenous contrast which is standard for urinary calculus assessment CT. Lungs: The visualized lung bases are clear. Heart: The heart is not enlarged. Metallic artifact compatible with atrialseptal closure device partially imaged on this exam. [...] There is no free intraperitoneal fluid or air. Nofocal fluid collection. Vasculature: Unremarkable. Lymph nodes: There are numerous small mesenteric n odes measuring up to 7 mm short axis. There is no retroperitoneal or pelvic adenopathy by size criteria. Urinary bladder: The urinary bladder is unremarkable. Reproductive: Unremarkable as visualized. Bones/joints: Unremarkable. No acute fracture. Soft tissues: Unremarkable. IMPRESSION: PAGE 1 Signed Report (CONTINUED) Name: frances schneider FSED : 1995 Age/S: 26 / F [address] [facility] Unit #: [id number] Loc: [place] [address] Phys: Serafin Torres MD Acct: [id number] Dis Date: Status: REG ER PHONE #: Exam Date: 11/04/2021 0907 FAX #: Reason: flank pain EXAMS: CPT CODE: [id number] CT ABD PELVIS W/O CONT 06773 (Continued) 1. Negative for urinary calculus or evidence of obstruction. 2. Numerous borderline enlarged mesenteric nodes. Please correlate clinically for evidenceof a mesenteric adenitis as a source of the patient's symptoms. 3. Incidental right adrenal adenoma for which no further imaging is recommended. COMMENTS: Consistent with the [employer]'s Incidental Findings Committee white paper (J Am Mona Radiol 2017): Any incidental adrenal lesion less than or equal to 1 cm is likely benign. No follow-up imaging is recommended for these lesionsper consensus recommendations based on imaging criteria. Further lab evaluation could be pursued if warranted based on clinical findings. at 0946 Reported and signed by: Phill Ramos M.D. CC: Serafin Torres MD Technologist:Elisha Tejeda, RT(R); Kira CTDI: DLP: Trnscb Date/Time: 11/04/2021 (945) [email or web address] Orig Print D/T: S: 11/04/2021 (945) PAGE 2 Signed ReportPOCT-GLUCOSE METER 2018-02-11 07:57:00 Test Item Value Reference Range Interpretation Comments POC-GLUCOSE METER 98 mg/dL 70-110 TESTED AT [facility] [address] (BEAKER) (test code = [place] [address] 1538) BASIC METABOLIC [id number] 06:37:00 Test Item Value Reference Range Interpretation [...] PATIEN TS. CBC W/PLT COUNT & AUTO [id number] 06:15:00 Test Item Value Reference Range Interpretation [...] 0-1 PERCENT (BEAKER) (test code = 2801) [id number] 18:54:00 Test Item Value Reference Range Interpretation Comments ACTIVATED CLOTTING TIME 131 sec TEST ED AT [facility] [address] ([facility]) (test code = [place] [address]) [address] [id number] 17:15:00 Test Item Value Reference Range Interpretation Comments ACTIVATED CLOTTING TIME 153 sec TEST ED AT [facility] [address] ([facility]) (test code = [place] [address]) [address] FACTOR 5 LEIDEN PCR (THROMBOTIC RISK)2018-02-10 16:20:00 Test Item Value Reference Range Interpretation Comments FACTOR V LEIDEN Negative for the R506Q (AKER) (test code = (Factor V Leiden) 718) mutation [id number] Kandy Simon MD ([facility]) (test code = (electronic signature) 4411) This test is a genotyping assay which [...] was developed and [facility], Section of Molecular Pathology. It has not been cleared or approved by the U.S. Food and Drug Administration (FDA), since FDA approval is not requ ired for clinical use of the test. Validation was done as required by the Clinical Laboratory Improvement Amendments of 1988.PROTHROMBIN GENE MUTATION 2018-02-10 16:18:00 Test Item Value Reference Range Interpretation Comments PROTHROMBIN/FACTOR Negative for the [id number] II (AKER) (test (Prothrombin/Factor II) code = 2163) mutation. [id number] Kandy Simon MD 1([facility]) (test code (electronic signature) = 1076) This test is a genotyping assay which evaluates the DNA sequence at position [address]671 of the prothrombin (Factor II) gene. A [...] and its performance characteristics determined by the [facility] Pathology Department, Section of Molecular [...] CLOTTING TIME 246 sec TEST ED AT [facility] [address] (BEAKER) (test code = [place] [address]) [address] BASIC METABOLIC [id number] 09:30:00 Test Item Value Reference Range Interpretation [...] NOT APPLICABLE FOR DIALYSIS PATIEN TS. PROTHROMBIN [id number] 09:21:00 Test Item Value Reference Range Interpretation Comments PROTIME (BEAKER) (test code = 13.6 seconds 11.7-14.7 759) INR (BEAKER) (test code = 370) 1.0 <=5.9 RECOMMENDED COUMADIN/WARFARIN INR THERAPY RANGESSTANDARD DOSE: 2.0 - 3.0 Includes: PROPHYLAXIS for venous thrombosis, systemic embolization; TREATMENT for venous thrombosis and/or pulmonary embolus.HIGH RISK: Target INR is 2.5-3.5 for patients with mechanical heart valves.CBC W/PLT COUNT & AUTO [id number] 09:10:00 Test Item Value Reference Range Interpretation [...] (BEAKER) (test code = 2801) COMPREHENSIVE METABOLIC [id number] 04:30:00 Test Item Value Reference Range Interpretation [...] S NOT APPLICABLE FOR DIALYSIS PATIEN TS. [id number] 04:13:00 Test Item Value Reference Range Interpretation [...] mechanical heart valves.CBC W/PLT COUNT & AUTO [id number] 04:09:00 Test Item Value Reference Range Interpretation [...] (BEAKER) (test code = 2801) PROTEIN C [id number] 10:44:00 Test Item Value Reference Range Interpretation Comments PROTEIN C ACTIVITY (BEAKER) (test 134.0 % 70.0-130.0 H code = 582) [id number] 19:54:00 Test Item Value Reference Range Interpretation Comments HOMOCYSTEINE (BEAKER) (test code = 8.8 umol/L 5.1-15.4 642) SCREEN, [id number] 16:47:00 Test Item Value Reference Range Interpretation Comments TEST URINE (BEAKER) (test Negative code = 583) MR, MRA PELVIS, WITHOUT FOLLOW WITH IV [id number] 09:34:00FINAL REPORT MRA/MRV of the pelvis, 05 February 2018 INDICATION: This is a 22 years old female, 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 TECHNIQUE: Joel Achieva MRI scan. High-resolution gradient echo images were performed in the axial orientation. Thereafter, a non-ECG gated, gadolinium enhanced 3-D MRA/MRV of the pelvis was performed. Multi-planar gisel nstruction were performed using an independent workstation. Please refer to the contrast sheet scanned in the [employer] system for the amount and route of [...] MDReport Verified Date/Time: 02/06/2018 09:34:36 Reading Location: [place] [address] Cardiology MRI URINALYSIS W/ REFLEX URINE [id number] 12:55:00 Test Item Value Reference Range Interpretation [...] = 516) SOURCE(BEAKER) (test code = 2795) [id number] 04:40:00 Test Item Value Reference Range Interpretation Comments PHOSPHORUS (BEAKER) (test code = 4.3 mg/dL 2.3-4.7 604) [id number] 04:40:00 Test Item Value Reference Range Interpretation Comments MAGNESIUM (BEAKER) (test code = 2.1 mg/dL 1.6-2.6 627) BASIC METABOLIC [id number] 04:40:00 Test Item Value Reference Range Interpretation [...] PATIEN TS. CBC W/PLT COUNT & AUTO [id number] 04:17:00 Test Item Value Reference Range Interpretation [...] (test code = 2801) MR, BRAIN, WITHOUT [id number] 22:33:00Reason for exam:->Stroke evaluationFINAL REPORT Exam: MRI brain without contrast. MR, MRA Neck without IV contrast. Comparison: None. Clinical indication: Stroke. Stroke evaluation Technique: Multiplanar multi sequential MR imaging of the brain was performed without the administration of intravenous contrast. 2 D and 3-D tdpp-vj-nyspuu MRA of the neck was provided with [...] Manuel MDReportVerified Date/Time: 02/03/2018 22:33:06 Reading Location: [address] Reading Room MR, MRA, NECK, WITHOUT IV [id number] 22:33:00Reason for exam:->Stroke evalFINAL REPORT Exam: MRI brain without contrast. MR, MRA Neck without IV contrast. Comparison: None. Clinical indication: Stroke. Stroke evaluation Technique: Multiplanar multi sequential MR imaging of the brain was performed without the administration of intravenous contrast. 2 D and 3-D pmhq-ca-fwwkgd MRA of the neck was provided with [...] Manuel MDReportVerified Date/Time: 02/03/2018 22:33:06 Reading Location: [address] Reading Room RAPID DRUG SCREEN, [id number] 10:41:00 Test Item Value Reference Range Interpretation [...] situations. Chain of custody not maintained. Some vvfd-guk-rhlvome medications, as well as adulterants, may cause inaccurate results. Clinical correlation should be applied. A more comprehensive drug screen or confirmation of a detected drug may be performed upon request. HEMOGLOBIN [id number] 08:50:00 Test Item Value Reference Range Interpretation Comments HEMOGLOBIN A1C (BEAKER) (test code = 4.9 % 4.3-6.1 368) POCT-GLUCOSE [id number] 08:26:00 Test Item Value Reference Range Interpretation Comments POC-GLUCOSE METER 78 mg/dL 70-110 TESTED AT [facility] [address] (BEAKER) (test code = [place] [address] 1538) CREATINE KINASE (CK), TOTAL AND [id number] 04:45:00 Test Item Value Reference Range Interpretation Comments CREATINE KINASE TOTAL (BEAKER) 72 U/L 29-200 (test code = 380) CREATINE KINASE-MB (BEAKER) (test 0.5 ng/mL 0.0-6.6 code = 750) CREATINE KINASE-MB INDEX (BEAKER) 0.7 % (test code = 395) CK-MB Reference Range:<6.7 Normal6.7-10.0 Borderline>10.0 AbnormalTROPONIN [id number] 04:45:00 Test Item Value Reference Range Interpretation [...] failure, acidosis, acute neurological disease, and persistent tachyarrhythmia.[id number] 04:37:00 Test Item Value Reference Range Interpretation Comments PHOSPHORUS (BEAKER) (test code = 3.3 mg/dL 2.3-4.7 604) [id number] 04:37:00 Test Item Value Reference Range Interpretation Comments MAGNESIUM (BEAKER) (test code = 2.1 mg/dL 1.6-2.6 627) BASIC METABOLIC [id number] 04:37:00 Test Item Value Reference Range Interpretation [...] NOT APPLICABLE FOR DIALYSIS PATIEN TS. LIPID [id number] 04:37:00 Test Item Value Reference Range Interpretation [...] Very High >=190CBC W/PLT COUNT & AUTO [id number] 04:20:00 Test Item Value Reference Range Interpretation [...] 0-1 PERCENT (BEAKER) (test code = 2801) Notes Date/Time Note Provider Source 2021-11-04 09:07:00-00:00 [facility] ([facility] EMERGENCY PROVIDER REPORT REPORT#:[id number] REPORT STATUS: Signed DATE:11/04/21 TIME: 906 PATIENT: frances schneider UNIT #: [id number] ROOM/BED: AGE: 26 SEX: F PCP PHYS: [facility] SERVICE AUTHOR: Pollo Torres MD * ALL edits or amendments must be made on the [employer]computer document * HPI-General Illness Free Text HPI Notes Free Text HPI Notes 26 yo F with hx PFO closure presents with dysuri a, hematuria. Patient reports symptoms started yesterday, with increased urina ry frequency, dysuria, hematuria. Patient denies fever, reports chills. Reports has had mild pain in bilateral flanks. Reports history of UTIs, sympt oms always similar to this. General Initial Greet Date/Time 11/04/21 0836 Presentation Chief Complaint __ (DYSURIA, HEMATURIA) Review of Systems Review of Systems Constitutional Reports: Chills. Denies: Fever. GI Denies: Abdominal pain, Nausea, Vomiting. Female Reports: Dysuria, Flank pain, Hematuria, Urinary frequency. Denies: Vaginal discharge. Past Medical History - Adult Stated Complaint burning and blood with urinatio n Allergies Coded Allergies: No Known Allergies (11/04/21) Calculated Suicide Risk (nurs) No risk Additional Surgical History PFO closure Smoking status: Smoking status for patients 13 years old or old er: Never Smoker Physical Exam Vital Signs Vital Signs First Documented: Result Date Time Pulse Ox 99 / 0847 B/P 111/70 / 0847 B/P Mean 83 / 0847 O2 Delivery Room air / 0847 Temp 36.6 / 0847 Pulse 82 05/ 0847 Resp 14 / 0847 Last Documented: Result Date Time Pulse Ox 99 / 0847 B/P 111/70 / 0847 B/P Mean 83 / 0847 O2 Delivery Room air / 0847 Temp 36.6 / 0847 Pulse 82 05/ 0847 Resp 14 / 0847 Review of Vital Signs Reviewed Physical Exam General/Const General/Const Awake, Alert, No acute distress Resp/Chest Respiratory/Chest No respiratory distress Cardiovascular Cardiovascular Heart rate NL Abdomen/GI Abdomen/GI Soft, No guarding, No rebound Tenderness/Guarding/Rebound Tender suprapubic. MS Back Flank/Spine/Paraspinal Flank tender L. Negative: Flank tender R. Skin Skin Color NL Interpretation Diagnostics Lab Results Interpretation Results Laboratory Tests: 11/04 11/04 09 0852 Urines POC Urine pH (5.0 - 7.0) 7 Ur Specific [place]xo (1.005 - 1.030) 1.005 POC Urine Protein (NEGATIVE) NEGATIVE POC Ur Glucose (UA) (NEGATIVE) NEGATIVE POC Urine Ketones (NEGATIVE) NEGATIVE POC Urine Blood (NEGATIVE) 1+ H POC Urine Nitrite (Negative) NEGATIVE Urine Bilirubin (NEGATIVE) NEGATIVE POC Urine Urobilinogen (0.2 - 1.0) NORMAL POC U Leukocyte Esteras (NEGATIVE) TRACE H Urine HCG, Qual (Negative) NEGATIVE Recent Impressions: CAT SCAN - CT ABD PELVIS W/O CONT 11/04 906 Report Impression - Status: SIGNED Entered: 11/04/2021 0946 IMPRESSION: 1. Negative for urinary calculus or evidence of obstruction. 2. Numerous borderline enlarged mesenteric nodes . Please correlate clinically for evidence of a mesenteric adenitis as a source of the patient's symptoms. 3. Incidental right adrenal adenoma for which no further imaging is recommended. COMMENTS: Consistent with the [place] [employer]'s Incidental Findings Committee white paper (J Am Mona Radiol 2017): Any incidental adrenal lesion less than or equal to 1 cm is likely benign. No follow-up imaging is recommended for these lesions per consensus recommendations based on imaging crite adán. Further lab evaluation could be pursued if warranted based o n clinical findings. Impression By: Tyrone Ramos M.D. Re-Evaluation MDM Free Text MDM Notes Free Text MDM Notes 26-year-old female, presents with dysuria, hemat uria. Exam with left flank tenderness. Consider cystitis, pyelonephritis, n ephrolithiasis. Patient nontoxic-appearing. Will obtain UA and noncontra st CT. Re-Evaluation/Progress #1 Text/Dict Note UA w/ trace leuko. hCG neg. CT w/o nephr olithiais. Discharge home with abx for pyelo given urine leuk and L CVA tenderness. Rec ommend PCP follow up. Return precautions provided. Patient Discharge Departure Vital Signs/Condition Vital Signs First Documented: Result Date Time Pulse Ox 99 11/04 846 B/P 111/70 11/04 846 B/P Mean 83 11/04 846 O2 Delivery Room air 11/04 846 Temp 36.6 11/04 846 Pulse 82 11/04 846 Resp 14 11/04 846 Last Documented: Result Date Time Pulse Ox 99 11/04 846 B/P 111/70 11/04 846 B/P Mean 83 11/04 846 O2 Delivery Room air 11/04 846 Temp 36.6 11/04 846 Pulse 82 11/04 846 Resp 14 11/04 846 All vital signs available at the time of this en try have been reviewed. Clinical Impression Clinical Impression Primary Impression: Pyelonephritis Disposition Decision Discharge )( Discharged to Home Yes )( Time 1002 )( Date 11/04/21 Discharge/Care Plan Counseled Regarding Diagnosi s, Lab results, Imaging studies, Prescriptions, Need for follow-up, When to return to ED (Auto) Prescriptions Current Visit Scripts CEFPODOXIME (VANTIN) 200 MG PO Q12H 10 Days #20 TABS Patient Instructions ED Pyelonephritis, Female ( Adult) Referrals Provider Group: PRIMARY CARE Follow-Up: 1 Week Discharge Note I have spoken with the patie nt and/or caregivers. I have explained the patient's condition, diagnoses and sweta atment plan based on the information available to me at this time. I have answered the patient's and/ or caregiver's questions and addressed any concerns. The patient and/or careg mansoor have as good an understanding of the patient 's diagnosis, condition and treatment plan as can be expected at this point. The vital signs have bee n stable. The patient's condition is stable and appr opriate for discharge from the emergency department. The patient will pursue further outpatient evalu ation with the primary care physician or other designated or consulting phys ician as outlined in the discharge instructions. The patient and/or caregivers are agreeable to this plan of care and follow-up instructions have been exp lained in detail. The patient and/or caregivers have received these instructio ns in written format and have expressed an understanding of the discharge inst ructions. The patient and/or caregivers are aware that any significant change in condition or worsening of symptoms should prompt an immediate return to [facility] or the closest emergency department or a call to 911. at 1015 RPT #:[id number] END OF REPORT
--- NOTE | 2022-12-16 13:28 | ER ---
Nurse's Notes [facility] Name: Alexander Schneider Age: 27 yrs Sex: Female : 1995 Arrival Date: 12/16/2022 Time: 12:15 Bed 18 Private MD: Diagnosis: UTI/ Urinary tract infection, site not specified Presentation: 12/16 12:35 Chief complaint: Patient states: Frequent "kidney infections", this one for the past ll1 two days. + hematuria, no fever. Coronavirus screen: Vaccine status: Patient reports being unvaccinated. Client denies travel out of the [place] in the last 14 days. At this time, the client does not indicate any symptoms associated with coronavirus-19. Ebola Screen: Patient denies travel to an Ebola-affected area in the 21 days before illness onset. Initial Sepsis Screen: Does the patient meet any 2 criteria? No. Patient's initial sepsis screen is negative. Does the patient have a suspected source of infection? Yes: Dysuria/Frequency/Urgency/UTI. Risk Assessment: Do you want to hurt yourself or someone else? Patient reports no desire to harm self or others. Onset of symptoms was December 15, 2022. 12:35 Method Of Arrival: Ambulatory ll1 12:35 Acuity: AMARILIS 3 ll1 Triage Assessment: 12:38 General: Appears uncomfortable, Behavior is calm, cooperative, appropriate for age. ll1 Pain: Complains of pain in pelvis Pain currently is 5 out of 10 on a pain scale. Quality of pain is described as aching. : Reports burning with urination, urgency, urinary frequency, blood in urine. Historical: - Allergies: 12:34 No Known Allergies; ll1 - PMHx: 12:34 murmur; "kidney infections"; ll1 12:34 "stroke"; ll1 - PSHx: 12:34 PFO closure; ll1 - Immunization history:: Client reports having NOT received the Covid vaccine. - Social history:: Smoking status: Patient denies any tobacco usage or history of. Screenin:30 [facility] ED Fall Risk Assessment (Adult) Score/Fall Risk Level 0 - 2 = Low Risk. Abuse eh3 screen: Denies threats or abuse. Denies injuries from another. Nutritional screening: No deficits noted. Tuberculosis screening: No symptoms or risk factors identified. Assessment: 12:30 General: Appears in no apparent distress. uncomfortable, Behavior is calm, cooperative, eh3 appropriate for age. Pain: Complains of pain in pelvis. Neuro: Level of Consciousness is awake, alert, obeys commands, Oriented to person, place, time, situation. Cardiovascular: Capillary refill < 3 seconds Patient's skin is warm and dry. Respiratory: Airway is patent Respiratory effort is even, unlabored, Respiratory pattern is regular, symmetrical. GI: Abdomen is round non-distended. : Reports burning with urination, cramping, urinary frequency. Derm: Skin is pink, warm \\T\\ dry. Musculoskeletal: Circulation, motion, and sensation intact. Vital Signs: 12:35 BP 126 / 81; Pulse 74; Resp 16; Temp 98.1; Pulse Ox 100% on R/A; Weight 68.04 kg; ll1 Height 5 ft. 0 in. ; Pain 5/10; 12:35 Body Mass Index 29.29 (68.04 kg, 152.4 cm) ll1 12:35 Pain Scale: Adult ll1 ED Course: 12:18 Patient arrived in ED. kj1 12:21 Georgina Carlin FNP-C [facility]. snw 12:22 Carlos Ferro MD is Attending Physician. snw 12:30 Patient has correct armband on for positive identification. Bed in low position. Call eh3 light in reach. Pulse ox on. NIBP on. 12:34 Arm band placed on Patient placed in an exam room, on a stretcher. ll1 12:38 Triage completed. ll1 13:33 No provider procedures requiring assistance completed. Patient did not have IV access eh3 during this emergency room visit. Administered Medications: 21:15 Not Given (Pt left for family emergency): Amoxicillin-Clavulanate PO 875 mg PO once eh3 Outcome: 13:27 Discharge ordered by . snw 13:33 Discharged to home ambulatory. eh3 13:33 Condition: stable 13:33 Discharge instructions given to patient, Instructed on discharge instructions, follow up and referral plans. medication usage, Demonstrated understanding of instructions, follow-up care, medications, Prescriptions given X 1. 13:34 Patient left the ED. eh3 Signatures: Georgina Carlin FNP-C BRANCH MANAGER-Nakita Wu kj1 Amy Garcia RN RN ll1 Debby Taylor, RN RN eh3
--- NOTE | 2022-12-16 13:28 | EDPHYS ---
Physician Documentation [facility] Name: Alexander Schneider Age: 27 yrs Sex: Female : 1995 Arrival Date: 12/16/2022 Time: 12:15 Bed 18 Private MD: ED Physician Carlos Ferro HPI: 12/16 13:44 This 27 yrs old Female presents to ER via Ambulatory with complaints of Urinary Problem.snw 13:44 Onset: The symptoms/episode began/occurred suddenly, 2 day(s) ago, and became snw persistent. Modifying factors: The patient symptoms are alleviated by nothing. The patient has experienced similar episodes in the past, multiple times. The patient has not recently seen a physician. Historical: - Allergies: 12:34 No Known Allergies; ll1 - PMHx: 12:34 murmur; "kidney infections"; ll1 12:34 "stroke"; ll1 - PSHx: 12:34 PFO closure; ll1 - Immunization history:: Client reports having NOT received the Covid vaccine. - Social history:: Smoking status: Patient denies any tobacco usage or history of. ROS: 13:44 Constitutional: Negative for fever, chills, and weight loss, Eyes: Negative for injury, snw pain, redness, and discharge, ENT: Negative for injury, pain, and discharge, Neck: Negative for injury, pain, and swelling, Cardiovascular: Negative for chest pain, palpitations, and edema, Respiratory: Negative for shortness of breath, cough, wheezing, and pleuritic chest pain, Abdomen/GI: Negative for abdominal pain, nausea, vomiting, diarrhea, and constipation, Back: Negative for injury and pain, MS/Extremity: Negative for injury and deformity, Skin: Negative for injury, rash, and discoloration, Neuro: Negative for headache, weakness, numbness, tingling, and seizure, Psych: Negative for depression, anxiety, suicide ideation, homicidal ideation, and hallucinations. 13:44 : Positive for urinary symptoms, small amounts, hematuria, burning with urination. Exam: 13:44 Constitutional: This is a well developed, well nourished patient who is awake, alert, snw and in no acute distress. Head/Face: Normocephalic, atraumatic. Eyes: Pupils equal round and reactive to light, extra-ocular motions intact. Lids and lashes normal. Conjunctiva and sclera are non-icteric and not injected. Cornea within normal limits. Periorbital areas with no swelling, redness, or edema. ENT: Nares patent. No nasal discharge, no septal abnormalities noted. Tympanic membranes are normal and external auditory canals are clear. Oropharynx with no redness, swelling, or masses, exudates, or evidence of obstruction, uvula midline. Mucous membranes moist. Neck: Trachea midline, no thyromegaly or masses palpated, and no cervical lymphadenopathy. Supple, full range of motion without nuchal rigidity, or vertebral point tenderness. No Meningismus. Chest/axilla: Normal chest wall appearance and motion. Nontender with no deformity. No lesions are appreciated. Cardiovascular: Regular rate and rhythm with a normal S1 and S2. No gallops, murmurs, or rubs. Normal PMI, no JVD. No pulse deficits. Respiratory: Lungs have equal breath sounds bilaterally, clear to auscultation and percussion. No rales, rhonchi or wheezes noted. No increased work of breathing, no retractions or nasal flaring. Abdomen/GI: Soft, non-tender, with normal bowel sounds. No distension or tympany. No guarding or rebound. No evidence of tenderness throughout. Back: No spinal tenderness. No costovertebral tenderness. Full range of motion. Skin: Warm, dry with normal turgor. Normal color with no rashes, no lesions, and no evidence of cellulitis. MS/ Extremity: Pulses equal, no cyanosis. Neurovascular intact. Full, normal range of motion. Neuro: Awake and alert, GCS 15, oriented to person, place, time, and situation. Cranial nerves II-XII grossly intact. Motor strength 5/5 in all extremities. Sensory grossly intact. Cerebellar exam normal. Normal gait. Psych: Awake, alert, with orientation to person, place and time. Behavior, mood, and affect are within normal limits. Vital Signs: 12:35 BP 126 / 81; Pulse 74; Resp 16; Temp 98.1; Pulse Ox 100% on R/A; Weight 68.04 kg; ll1 Height 5 ft. 0 in. ; Pain 5/10; 12:35 Body Mass Index 29.29 (68.04 kg, 152.4 cm) ll1 12:35 Pain Scale: Adult ll1 MDM: 12:22 Patient medically screened. snw 13:44 Differential diagnosis: viral Infection, bacterial infection, UTI. Data reviewed: vital snw signs, nurses notes. Counseling: I had a detailed discussion with the patient and/or guardian regarding: the historical points, exam findings, and any diagnostic results supporting the discharge/admit diagnosis, the need for outpatient follow up, for definitive care. Special discussion: Based on the history and exam findings, there is no indication for further emergent testing or inpatient evaluation. I discussed with the patient/guardian the need to see the primary care provider for further evaluation of the symptoms. I discussed with the patient/guardian the need to see the urologist for further evaluation of the symptoms. 12/16 12:22 Order name: Urine W/Microscopic (UAM); Complete Time: 11:32 snw 12/16 12:22 Order name: PREGU; Complete Time: 11:32 snw Administered Medications: 21:15 Not Given (Pt left for family emergency): Amoxicillin-Clavulanate PO 875 mg PO once 3 Disposition Summary: 12/16/22 13:27 Discharge Ordered Location: Home snw Condition: Stable snw Diagnosis - UTI/ Urinary tract infection, site not specified snw Followup: snw - With: Emergency Department - When: As needed - Reason: Worsening of condition Followup: snw - With: Private Physician - When: 2 - 3 days - Reason: Recheck today's complaints, Continuance of care, Re-evaluation by your physician Discharge Instructions: - Urinary Tract Infection, Adult snw - Rehydration, Adult snw - Discharge Summary Sheet 3 Forms: - Medication Reconciliation Form snw - Thank You Letter snw - Antibiotic Education snw - Prescription Opioid Use snw - Work release form 3 Prescriptions: - Augmentin 875-125 mg Oral Tablet - take 1 tablet by ORAL route every 12 hours for 10 days; 20 tablet; Refills: 0, snw Product Selection Permitted - Fluconazole 200 mg Oral Tablet - take 1 tablet by ORAL route one time Take after last antibiotic; 1 tablet; snw Refills: 0, Product Selection Permitted Signatures: Dispatcher [employer] Georgina Adams FNP-C FNP-Dinow Amy Garcia RN RN 1 Debby Taylor RN 3
[2022-12-16 13:52] LABS: Specific Gravity 1.013 (1.005-1.030)
[2022-12-16 13:53] LABS: Specific Gravity 1.013 (1.005-1.030); Urine Bacteria <20 /HPF (<20); Urine Bilirubin NEGATIVE (Negative); Urine Blood Negative (Negative); Urine Clarity Extremely Turbid (Clear); Urine Color Light-Yellow (Yellow); Urine Glucose NEGATIVE (Negative); Urine Mucus Slight /HPF (None Seen); Urine Protein NEGATIVE (Negative); Urine RBC <5 /HPF (None Seen); Urine Urobilinogen Normal (Normal)
[2022-12-16 14:48] VITALS: BP 126/81; TEMP 98.1; O2SAT 100
== END 2022-12-16 13:34 | disposition home or self-care (01) ==
LOC: ER 12:15
DX: N39.0 Urinary tract infection, site not specified (principal)
CPT/HCPCS: 81001; 81025; 99283

== ENCOUNTER → 2023-07-30 | Emergency (ER) | payer SELFPAY ==
[~2023-07-30] MED LIST: BUPIVACAINE 0.5% PF 10 ML VIAL ONE; HYDROCODONE/APAP 5/325 MG TAB ONE; IBUPROFEN 400 MG TAB ONE; LIDOCAINE 2% MPF 5 ML VIAL ONE
--- NOTE | 2023-07-30 02:56 | EDPHYS ---
Physician Documentation [facility] Name: Alexander Schneider Age: 28 yrs Sex: Female : 1995 Arrival Date: 07/30/2023 Time: 00:38 Bed 19 Private MD: ED Physician Geoffrey George HPI: 07/30 01:30 This 28 yrs old Female presents to ER via Ambulatory with complaints of Foot Injury, cp Foot Pain. 01:30 The patient presents with an injury. The complaints affect the dorsum of left foot. cp Context: resulted from a direct blow, kicked table, the patient can fully bear weight, the patient is able to ambulate, with moderate difficulty. Onset: The symptoms/episode began/occurred just prior to arrival. Associated signs and symptoms: Pertinent positives: partially avulsed nail of left second toe. Treatment prior to arrival includes: no previous treatment. Historical: - Allergies: 00:54 No Known Allergies; jb4 - PMHx: 00:54 murmur; Kidney infections; CVA; jb4 - PSHx: 00:54 PFO closure; jb4 - Immunization history:: Adult Immunizations up to date. - Social history:: Smoking status: Patient denies any tobacco usage or history of. ROS: 01:35 MS/extremity: Positive for pain, of the left foot, nail deformity of left second toe, cp Negative for paresthesias, 01:35 Neuro: Negative for numbness, weakness, cp 01:35 All other systems are negative, Exam: 01:40 Constitutional: The patient appears in no acute distress, alert, awake, well developed, cp well nourished, uncomfortable, 01:40 Musculoskeletal/extremity: Extremities: grossly normal except: noted in the toes of cp left foot: tenderness, almost complete avulsion of nail of left second toe with mild bleeding, nail bed intact, no lacerations noted, ROM: full active range of motion, in the left second toe, Perfusion: the extremity is normally perfused throughout, the left second toe Sensation intact. Vital Signs: 00:53 BP 123 / 63; Pulse 78; Resp 16; Temp 97.8(TE); Pulse Ox 98% on R/A; Weight 73.48 kg jb4 (R); Height 5 ft. 0 in. (R); 03:48 BP 120 / 76; Pulse 80; Resp 16; Temp 98.3; Pulse Ox 97% on R/A; la4 00:53 Body Mass Index 31.64 (73.48 kg, 152.4 cm) jb4 Kristen Coma Score: 03:48 Eye Response: spontaneous(4). Motor Response: obeys commands(6). Verbal Response: la4 oriented(5). Total: 15. Procedures: 02:50 Performed nail removal: digital block performed using 5 ccs of mixture 1% lidocaine w/o cp epi and 0.5% marcaine. nail of left second toe removed and then replaced. figure eight stitch using 4-0 prolene placed. toe cleaned and dressed. patient tolerated procedure well. MDM: 02:00 Differential diagnosis: dislocation, open fracture, closed fracture, contusion, nail cp avulsion. 02:55 Patient medically screened. 02:55 Data reviewed: vital signs, nurses notes, radiologic studies, plain films. 02:55 I considered the following discharge prescriptions or medication management in the emergency department Medications were administered in the Emergency Department. See MAR. Counseling: I had a detailed discussion with the patient and/or guardian regarding the historical points, exam findings, and any diagnostic results supporting the discharge/admit diagnosis, radiology results, the need for outpatient follow up, a family practitioner, to return to the emergency department if symptoms worsen or persist or if there are any questions or concerns that arise at home. Response to treatment: the patient's symptoms have markedly improved after treatment, and as a result, I will discharge patient. 07/30 01:00 Order name: Foot Left 3 View XRAY kdr 07/30 02:54 Order name: Wound dressing; Complete Time: 03:20 cp 07/30 03:36 Order name: Crutches; Complete Time: 03:48 cp Administered Medications: :19 Drug: Lidocaine Infiltration (1 %) 5 ml 5 ml Infiltration once; to bedside Volume: 5 la4 ml; Route: Infiltration; :19 Drug: Bupivacaine Infiltration (0.5 %) 10 ml 10 ml Infiltration once Volume: 10 ml; la4 Route: Infiltration; :19 Drug: HYDROcodone-acetaminophen PO 5 mg-325 mg 1 tabs PO once Route: PO; la4 01:19 Drug: Ibuprofen PO 800 mg PO once Route: PO; la4 03:48 Drug: HYDROcodone-acetaminophen PO 5 mg-325 mg 1 tabs PO once Route: PO; la4 Disposition Summary: 07/30/23 02:55 Discharge Ordered Notes: Location: Home cp Problem: new cp Symptoms: have improved cp Condition: Stable cp Diagnosis - Contusion of left lesser toe(s) with damage to nail, initial encounter - partial cp avulsion Followup: cp - With: Private Physician - When: 7 - 10 days - Reason: Staple/Suture removal Discharge Instructions: - Discharge Summary Sheet cp - Nail Avulsion cp Forms: - Medication Reconciliation Form cp - Thank You Letter cp - Antibiotic Education cp - Prescription Opioid Use cp - Patient Portal Instructions cp - Leadership Thank You Letter cp Prescriptions: - Cephalexin 500 mg Oral Capsule - take 1 capsule ORAL route every 8 hours for 10 days; 30 capsule; Refills: 0, cp Product Selection Permitted - Ibuprofen 800 mg Oral Tablet - take 1 tablet ORAL route every 8 hours As needed take with food; 30 tablet; cp Refills: 0, Product Selection Permitted Signatures: Dispatcher [employer] EDDE Massimo Gastelum PA PA cp Geoffrey Pendleton, RN RN jb4 Marry Barr RN RN la4 Corrections: (The following items were deleted from the chart) 07/31 03:37 03:26 MS/extremity: Positive for pain, of the left foot, nail deformity of left second cp toe, Negative for paresthesias, cp
--- NOTE | 2023-07-30 02:56 | ER ---
Nurse's Notes [facility] Name: Alexander Schneider Age: 28 yrs Sex: Female : 1995 Arrival Date: 07/30/2023 Time: 00:38 Bed 19 Private MD: Diagnosis: Contusion of left lesser toe(s) with damage to nail, initial encounter-partial avulsion Presentation: 07/30 00:53 Chief complaint: Patient states: My foot was stuck under the blanket and I was trying jb4 to get it unstuck and accidentally kicked a wood table and Injured my left second toe. Coronavirus screen: At this time, the client does not indicate any symptoms associated with coronavirus-19. Ebola Screen: No symptoms or risks identified at this time. Initial Sepsis Screen: Does the patient meet any 2 criteria? No. Patient's initial sepsis screen is negative. Does the patient have a suspected source of infection?. Risk Assessment: Do you want to hurt yourself or someone else? Patient reports no desire to harm self or others. Onset of symptoms was July 30, 2023. Transition of care: patient was not received from another setting of care. 00:53 Method Of Arrival: Ambulatory jb4 00:53 Acuity: AMARILIS 4 jb4 Triage Assessment: 02:45 General: Appears in no apparent distress. Behavior is calm, cooperative, appropriate la4 for age. 02:45 Injury Description: Avulsion sustained to Left second toenail is partial. la4 Historical: - Allergies: 00:54 No Known Allergies; jb4 - PMHx: 00:54 murmur; Kidney infections; CVA; jb4 - PSHx: 00:54 PFO closure; jb4 - Immunization history:: Adult Immunizations up to date. - Social history:: Smoking status: Patient denies any tobacco usage or history of. Screenin:48 [facility] ED Fall Risk Assessment (Adult) History of falling in the last 3 months, la4 including since admission No falls in past 3 months (0 pts) Confusion or Disorientation No (0 pts) Intoxicated or Sedated No (0 pts) Impaired Gait No (0 pts) Mobility Assist Device Used No (0 pt) Altered Elimination No (0 pt) Score/Fall Risk Level 0 - 2 = Low Risk Oriented to surroundings, Hourly rounding (assess needs \T\ fall precautionary measures) done. Abuse screen: Denies threats or abuse. Denies injuries from another. Nutritional screening: No deficits noted. Tuberculosis screening: No symptoms or risk factors identified. Assessment: 02:45 General: Appears in no apparent distress. uncomfortable. la4 03:48 Pain: Complains of pain in left second toe and Left second toenail Pain currently is 8 la4 out of 10 on a pain scale. Quality of pain is described as throbbing, Is continuous. Neuro: No deficits noted. Frost Agitation-Sedation Scale (RASS): 0 - Alert and Calm Level of Consciousness is awake, alert, obeys commands, Oriented to person, place, time, situation, Appropriate for age. Cardiovascular: No deficits noted. Heart tones S1 S2 Capillary refill < 3 seconds is brisk Patient's skin is warm and dry. Respiratory: No deficits noted. GI: No deficits noted. No signs and/or symptoms were reported involving the gastrointestinal system. : No deficits noted. Musculoskeletal: Circulation, motion, and sensation intact. Capillary refill < 3 seconds, is brisk, fingers. toes. Range of motion: intact in all extremities, lifted toenail to the 2nd toe. Vital Signs: 00:53 BP 123 / 63; Pulse 78; Resp 16; Temp 97.8(TE); Pulse Ox 98% on R/A; Weight 73.48 kg jb4 (R); Height 5 ft. 0 in. (R); 03:48 BP 120 / 76; Pulse 80; Resp 16; Temp 98.3; Pulse Ox 97% on R/A; la4 00:53 Body Mass Index 31.64 (73.48 kg, 152.4 cm) jb4 [place] Coma Score: 03:48 Eye Response: spontaneous(4). Motor Response: obeys commands(6). Verbal Response: la4 oriented(5). Total: 15. ED Course: 00:44 Patient arrived in ED. gm2 00:46 Geoffrey George MD is Attending Physician. kdr 00:54 Triage completed. jb4 00:54 Arm band placed on right wrist. jb4 00:59 Massimo Gastelum PA is PHCP. cp 01:19 Marry Barr RN is Primary Nurse. la4 01:27 Foot Left 3 View XRAY In Process Unspecified. EDMS 03:48 Patient has correct armband on for positive identification. Placed in gown. Bed in low la4 position. Call light in reach. Side rails up X2. Provided Education on: Plan of care. 03:48 No provider procedures requiring assistance completed. Patient did not have IV access la4 during this emergency room visit. Administered Medications: 01:19 Drug: Lidocaine Infiltration (1 %) 5 ml 5 ml Infiltration once; to bedside Volume: 5 la4 ml; Route: Infiltration; 01:19 Drug: Bupivacaine Infiltration (0.5 %) 10 ml 10 ml Infiltration once Volume: 10 ml; la4 Route: Infiltration; 01:19 Drug: HYDROcodone-acetaminophen PO 5 mg-325 mg 1 tabs PO once Route: PO; la4 01:19 Drug: Ibuprofen PO 800 mg PO once Route: PO; la4 03:48 Drug: HYDROcodone-acetaminophen PO 5 mg-325 mg 1 tabs PO once Route: PO; la4 Medication: 03:48 VIS not applicable for this client. la4 Outcome: 02:55 Discharge ordered by . cp 03:48 Discharged to home ambulatory, with significant other, la4 03:48 Condition: stable 03:48 Discharge instructions given to patient, significant other, Instructed on discharge instructions, follow up and referral plans. Demonstrated understanding of Prescriptions given X 2, 06:12 Patient left the ED. la4 Signatures: Dispatcher [employer] EDPA Geoffrey George MD MD kdr Massimo Gastelum PA PA Geoffrey King RN RN jb4 Sherita Mejia 2 Marry Barr RN RN la4 Corrections: (The following items were deleted from the chart) 06:11 06:10 General: Behavior is la4 la4
[2023-07-30 07:25] VITALS: BP 120/76; TEMP 98.3; O2SAT 97
--- NOTE | 2023-07-30 16:38 | RAD REPORT ---
EXAM DESCRIPTION: RAD - Foot Left 3 View - 07/30/2023 1:25 am CLINICAL HISTORY: 28 years Female, PAIN COMPARISON: None. FINDINGS: 3 views of the left foot. Normal osseous mineralization. No acute fracture or dislocation. Possible nail injury at the second toe. Correlate with physical exam findings. IMPRESSION: No acute fracture. Possible nail injury at the second toe. Correlate with physical exam findings. Electronically signed by: Afsaneh Clark MD 07/30/2023 01:37 AM COURTESY VAN DRIVER Due to temporary technical issues with the PACS/Fluency reporting system, reports are being signed by the in house radiologists without review as a courtesy to insure prompt reporting. The interpreting radiologist is fully responsible for the content of the report.
== END ==
LOC: ER 00:38
DX: S90.222A Contusion of left lesser toe(s) with damage to nail, initial encounter (principal)
CPT/HCPCS: J2001

== ENCOUNTER → 2023-08-22 | Emergency (ER) | payer SELFPAY ==
--- NOTE | 2023-08-22 19:58 | EDPHYS ---
Physician Documentation [facility] Name: Alexander Schnieder Age: 28 yrs Sex: Female : 1995 Arrival Date: 08/22/2023 Time: 19:47 Bed DX3 Private MD: ED Physician Rocael Turner HPI: 08/22 19:58 This 28 yrs old Female presents to ER via Unassigned with complaints of Suture Removal. sb4 19:58 The patient has sutures on the Left second toenail. sb4 19:59 Previous treatment: The patient was initially treated 2 day(s) ago, the care was sb4 rendered at [facility], Treatment type: The patient's original treatment included sutures. Sutures/kiersten progress: The patient has no c/o's. The wound is well-healing with no redness, swelling, discharge, or dehiscence reported. Historical: - Allergies: 20:00 No Known Allergies; jb4 - PMHx: 20:00 Kidney Infections; murmur; CVA; jb4 - PSHx: 20:00 PFO closure; jb4 - Immunization history:: Adult Immunizations up to date. - Social history:: Smoking status: Patient denies any tobacco usage or history of. ROS: 19:59 Constitutional: Negative for fever, chills, and weight loss, sb4 19:59 Skin: 19:59 All other systems are negative, Exam: 19:59 Constitutional: This is a well developed, well nourished patient who is awake, alert, sb4 and in no acute distress. Head/Face: Normocephalic, atraumatic. Eyes: Extra-ocular motions intact. Periorbital areas with no swelling, redness, or edema. ENT: Mucous membranes moist. Skin: Warm, dry with normal turgor. Normal color with no rashes, no lesions, and no evidence of cellulitis. 19:59 Skin: injury, left second toenail with figure [address], Vital Signs: 19:57 jb4 19:57 Pt refused vitals jb4 Procedures: 19:59 Suture/Staple removal: Removed 1 sutures, from Left second toenail, site appears well sb4 healed, Patient tolerated well. MDM: 19:57 Patient medically screened. sb4 19:59 Data reviewed: nurses notes, and as a result, I will discharge patient. sb4 Administered Medications: No medications were administered Disposition Summary: 08/22/23 19:57 Discharge Ordered Notes: Location: Home sb4 Problem: new sb4 Symptoms: have improved sb4 Condition: Stable sb4 Diagnosis - Encounter for removal of sutures sb4 Followup: sb4 - With: Ricci Downs DPM - When: As needed - Reason: Recheck today's complaints, Re-evaluation by your physician Forms: - Medication Reconciliation Form sb4 - Thank You Letter sb4 - Antibiotic Education sb4 - Prescription Opioid Use sb4 - Patient Portal Instructions sb4 - Leadership Thank You Letter sb4 Addendum: 08/23/2023 20:57 Co-signature as Attending Physician, Rocael Turner MD I agree with the assessment s p4 and plan of care. I reviewed the patient's care provided by the Advanced Practice Provider and agree with the diagnosis and treatment plan. Signatures: Geoffrey Pendleton RN RN jb4 Nika Frazier PA-C PA-C sb4 Rocael Turner MD MD sp4 Corrections: (The following items were deleted from the chart) 08/22 19:59 19:58 Previous treatment: The patient was initially treated sb4 sb4
--- NOTE | 2023-08-22 20:04 | ER ---
Nurse's Notes [facility] Name: Alexander Schneider Age: 28 yrs Sex: Female : 1995 Arrival Date: 08/22/2023 Time: 19:47 Bed DX3 Private MD: Diagnosis: Encounter for removal of sutures Presentation: 08/22 19:57 Chief complaint: Patient states: I need the sutures of my second left toe removed. jb4 Coronavirus screen: At this time, the client does not indicate any symptoms associated with coronavirus-19. Ebola Screen: No symptoms or risks identified at this time. Initial Sepsis Screen: Does the patient meet any 2 criteria? No. Patient's initial sepsis screen is negative. Does the patient have a suspected source of infection? No. Patient's initial sepsis screen is negative. Risk Assessment: Do you want to hurt yourself or someone else? Patient reports no desire to harm self or others. Onset of symptoms was August 22, 2023. Transition of care: patient was not received from another setting of care. 19:57 Method Of Arrival: Ambulatory jb4 19:57 Acuity: AMARILIS 5 jb4 Historical: - Allergies: 20:00 No Known Allergies; jb4 - PMHx: 20:00 Kidney Infections; murmur; CVA; jb4 - PSHx: 20:00 PFO closure; jb4 - Immunization history:: Adult Immunizations up to date. - Social history:: Smoking status: Patient denies any tobacco usage or history of. Screenin:00 [facility] ED Fall Risk Assessment (Adult) History of falling in the last 3 months, jb4 including since admission No falls in past 3 months (0 pts) Confusion or Disorientation No (0 pts). Abuse screen: Denies threats or abuse. Nutritional screening: No deficits noted. Tuberculosis screening: No symptoms or risk factors identified. Assessment: 20:00 General: Appears in no apparent distress. comfortable, Behavior is calm, cooperative. jb4 Pain: Complains of pain in Left second toenail Pain does not radiate. Pain currently is 6 out of 10 on a pain scale. Neuro: Level of Consciousness is awake, alert, obeys commands, Oriented to person, place, time, situation. Cardiovascular: Patient's skin is warm and dry. Respiratory: Airway is patent Respiratory effort is even, unlabored, Respiratory pattern is regular, symmetrical. GI: No signs and/or symptoms were reported involving the gastrointestinal system. : No signs and/or symptoms were reported regarding the genitourinary system. EENT: No signs and/or symptoms were reported regarding the EENT system. Derm: Skin is intact, Skin is pink, warm \T\ dry. Musculoskeletal: Circulation, motion, and sensation intact. Range of motion: intact in all extremities. Vital Signs: 19:57 jb4 19:57 Pt refused vitals jb4 ED Course: 19:50 Patient arrived in ED. jj6 19:51 [facility] sb4 19:51 Rocael Turner MD is Attending Physician. sb4 19:57 Ricci Downs DPM is Referral Physician. sb4 19:59 Triage completed. jb4 20:00 Arm band placed on right wrist. jb4 20:00 Patient has correct armband on for positive identification. Call light in reach. Side jb4 rails up X 1. 20:00 No provider procedures requiring assistance completed. Patient did not have IV access jb4 during this emergency room visit. Administered Medications: No medications were administered Medication: 20:00 VIS not applicable for this client. jb4 Outcome: 19:57 Discharge ordered by . sb4 20:00 Discharged to home ambulatory, jb4 20:00 Condition: stable 20:00 Discharge instructions given to patient, Instructed on discharge instructions, follow up and referral plans. Demonstrated understanding of instructions, follow-up care, left prior to receiving D/c instructions. 20:03 Patient left the ED. jb4 Signatures: Geoffrey Pendleton RN RN jb4 Daisy Alexis jj6 Nika Frazier PA-C PA-C sb4
== END ==
LOC: ER 19:47
DX: Z48.02 Encounter for removal of sutures (principal)
CPT/HCPCS: 99282

== ENCOUNTER 2023-12-27 15:23 | Emergency (ER) | payer OTHER ==
--- NOTE | 2023-12-27 18:01 | ER ---
Nurse's Notes [facility] Name: Alexander Schneider Age: 28 yrs Sex: Female : 1995 Arrival Date: 12/27/2023 Time: 15:23 Bed Treatment Private MD: Diagnosis: Presentation: 12/26 16:16 Chief complaint: Patient states: R eye pain and swelling x 2 days, states, " I was ph trying to get a hair out of my eye and I think I scratched it.". Coronavirus screen: Vaccine status: Patient reports being unvaccinated. Ebola Screen: No symptoms or risks identified at this time. Initial Sepsis Screen: Does the patient meet any 2 criteria? No. Patient's initial sepsis screen is negative. Does the patient have a suspected source of infection? No. Patient's initial sepsis screen is negative. Risk Assessment: Do you want to hurt yourself or someone else? Patient reports no desire to harm self or others. Onset of symptoms was December 27, 2023. 16:16 Method Of Arrival: Ambulatory ph 16:16 Acuity: AMARILIS 4 ph Historical: - Allergies: 16:19 No Known Allergies; ph - PMHx: 16:19 Kidney Infections; murmur; CVA; ph - PSHx: 16:19 PFO closure; ph - Immunization history:: Adult Immunizations unknown. - Infectious Disease History:: Denies. - Social history:: Smoking status: Reported history of juuling and/or vaping. Vital Signs: 16:16 BP 107 / 74; Pulse 88; Resp 18; Temp 97.9; Pulse Ox 99% on R/A; Weight 76.2 kg; Height ph 5 ft. 0 in. ; 16:16 Body Mass Index 32.81 (76.20 kg, 152.4 cm) ph ED Course: 15:25 Patient arrived in ED. mr 15:51 Brad Perdomo MD is Attending Physician. rt 16:19 Triage completed. ph 16:19 Arm band placed on Patient placed in waiting room, Patient notified of wait time. ph 18:00 Patient's name was called from ER lobby. No response. Unable to locate patient. Will ph disposition as left without being seen by a provider. Administered Medications: No medications were administered Outcome: 18:00 Patient left the ED. ph Signatures: Britt Richey, Reg Reg mr Yolande Taylor, RN RN ph Brad Perdomo MD MD rt
--- NOTE | 2023-12-27 18:01 | EDPHYS ---
Physician Documentation [facility] Name: Alexander Schneider Age: 28 yrs Sex: Female : 1995 Arrival Date: 12/27/2023 Time: 15:23 Bed Treatment Private MD: ED Physician Brad Perdomo Historical: - Allergies: 12/26 16:19 No Known Allergies; ph - PMHx: 16:19 Kidney Infections; murmur; CVA; ph - PSHx: 16:19 PFO closure; ph - Immunization history:: Adult Immunizations unknown. - Infectious Disease History:: Denies. - Social history:: Smoking status: Reported history of juuling and/or vaping. Vital Signs: 16:16 BP 107 / 74; Pulse 88; Resp 18; Temp 97.9; Pulse Ox 99% on R/A; Weight 76.2 kg; Height ph 5 ft. 0 in. ; 16:16 Body Mass Index 32.81 (76.20 kg, 152.4 cm) ph MDM: 18:00 ED course: Patient eloped from the waiting room before I was able to evaluate the rt patient.. 12/26 16:24 Order name: Eye Tray rt 12/26 16:24 Order name: Fluoresene Opth strip rt Administered Medications: No medications were administered Disposition Summary: 12/27/23 18:00 Eloped Notes: Disposition: before being seen by provider ph Reason: unknown ph Signatures: Yolande Taylor RN RN ph Brad Perdomo MD MD rt Corrections: (The following items were deleted from the chart) 18:00 17:43 Patient medically screened. rt rt
[2023-12-28 00:11] VITALS: BP 107/74; TEMP 97.9; O2SAT 99
== END 2023-12-27 18:00 | disposition left against medical advice (07) ==
LOC: ER 15:23
DX: Z02.9 Encounter for administrative examinations, unspecified (principal)

== ENCOUNTER 2023-12-27 21:18 | Emergency (ER) | payer OTHER ==
[2023-12-27] MEDS ORDERED: TETRACAINE HCL 0.5% 4ML OPTH ONE (21:33)
[2023-12-27] MEDS ORDERED: FLUORESCEIN SODIUM 1 MG/WRAP ONE (21:34)
[2023-12-27] MEDS ORDERED: ERYTHROMYCIN 3.5GM OPTH OINT ONE (21:54)
--- NOTE | 2023-12-27 21:56 | EDPHYS ---
Physician Documentation [facility] Name: Alexander Schneider Age: 28 yrs Sex: Female : 1995 Arrival Date: 12/27/2023 Time: 21:18 Bed 20 Private MD: ED Physician Sunny Manley HPI: 12/26 21:54 This 28 yrs old Female presents to ER via Ambulatory with complaints of Eye ec2 Problem. 21:54 Patient arrives today for evaluation of pain in the right eye. Patient reports that she ec2 was try to get her out of her eye and subsequently scratched it. Patient reports that she does not wear contact lenses and otherwise has had no previous eye pathology.. 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 - Infectious Disease History:: Denies. - Social history:: Smoking status: Patient denies any tobacco usage or history of. Patient/guardian denies using alcohol, street drugs. ROS: 21:54 Constitutional: as per hpi ec2 Exam: 21:54 Constitutional: GEN: NAD Head: atraumatic Eyes: EOMI, bilateral pupillary response ec2 noted, corneal stain performed, defect in the cornea noted in the left lower eye, approximately the 5 o'clock position. Ears: External ears are normal. CV: regular rate LUNGS: no respiratory distress ABD: non-distended SKIN: no evidence of rashes MSK: no evidence of trauma NEURO: moves all extremities equally Vital Signs: 21:26 BP 123 / 70; Pulse 87; Resp 17; Temp 97.5; Pulse Ox 99% ; Weight 77.11 kg; Height 5 ft. bm8 0 in. ; Pain 5/10; 22:00 BP 116 / 77; Pulse 84; Resp 14; Pulse Ox 100% on R/A; me1 21:26 Body Mass Index 33.20 (77.11 kg, 152.4 cm) bm8 21:26 Pain Scale: Adult bm8 MDM: 21:33 Patient medically screened. ec2 21:54 Data reviewed: vital signs. ED course: Patient arrives today for eye pain and eye ec2 irritation. Examination remarkable for eye findings as above. Presentation consistent with corneal abrasion. Additionally considered other process such as hyphema, hypopyon, corneal ulcer. Will prescribe the patient with erythromycin. Return precautions given.. 12/26 21:34 Order name: Eye Tray; Complete Time: 21:37 ec2 12/26 21:34 Order name: Fluoresene Opth strip; Complete Time: 21:37 ec2 12/26 21:54 Order name: Misc. Order: cover eye; Complete Time: 22:01 ec2 Administered Medications: 21:48 Drug: Tetracaine Ophthalmic Drops 0.5 % 1 drops Ophthalmic once Route: Ophthalmic; me1 Site: right eye; 22:10 Follow up: Response: No adverse reaction; Pain is decreased me1 21:56 Drug: ERYTHromycin Ophthalmic Ointment 1 application Ophthalmic once Route: Ophthalmic; me1 Site: right eye; 22:10 Follow up: Response: No adverse reaction me1 Disposition Summary: 12/27/23 21:56 Discharge Ordered Notes: Location: Home ec2 Condition: Stable ec2 Diagnosis - Injury of conjunctiva and corneal abrasion without foreign body ec2 Followup: ec2 - With: Landon Louis MD - When: - Reason: Recheck today's complaints Discharge Instructions: - Discharge Summary Sheet ec2 - Corneal Abrasion, [id number] ec2 Forms: - Medication Reconciliation Form ec2 - Antibiotic Education ec2 - Prescription Opioid Use ec2 - Patient Portal Instructions ec2 - Leadership Thank You Letter ec2 Prescriptions: - Erythromycin 5 mg/gram (0.5 %) Ophthalmic ointment - apply 1 centimeter OPHTHALMIC route 2-3 times daily for 7 days; 1 unit; ec2 Refills: 0, Product Selection Permitted Signatures: Aurea Wang RN RN me1 Sunny Manley MD MD ec2 Steven Wetzel RN RN bm8 Corrections: (The following items were deleted from the chart) 21: 21:29 PMHx: "kidney infections"; bm8 bm8 21:30 21:29 PMHx: "Stroke"; bm8 bm8
--- NOTE | 2023-12-27 21:56 | ER ---
Nurse's Notes [facility] Name: Alexander Schneider Age: 28 yrs Sex: Female : 1995 Arrival Date: 12/27/2023 Time: 21:18 Bed 20 Private MD: Diagnosis: Injury of conjunctiva and corneal abrasion without foreign body Presentation: 12/26 21:26 Chief complaint: Patient states: I had a hair in my right eye yesterday and while bm8 working to remove i think i cut the outer layer of my eye. Coronavirus screen: At this time, the client does not indicate any symptoms associated with coronavirus-19. Ebola Screen: Patient negative for fever greater than or equal to 101.5 degrees Fahrenheit, and additional compatible Ebola Virus Disease symptoms Patient denies exposure to infectious person. Patient denies travel to an Ebola-affected area in the 21 days before illness onset. No symptoms or risks identified at this time. Initial Sepsis Screen: Does the patient meet any 2 criteria? No. Patient's initial sepsis screen is negative. Does the patient have a suspected source of infection? No. Patient's initial sepsis screen is negative. Risk Assessment: Do you want to hurt yourself or someone else? Patient reports no desire to harm self or others. Onset of symptoms was December 26, 2023 at 15:00. 21:26 Method Of Arrival: Ambulatory bm8 21:26 Acuity: AMARILIS 2 bm8 Triage Assessment: 21:29 General: Appears in no apparent distress. uncomfortable, Behavior is calm, cooperative, bm8 appropriate for age. Pain: Complains of pain in right eye. EENT: Eyes are tearing on outer aspect of conjuctiva of right eye, iris of right eye and inner aspect of conjuctiva of right eye Reports blurred vision since yesterday around 1500. Neuro: No deficits noted. Level of Consciousness is awake, alert, obeys commands, Oriented to person, place, time, situation, Appropriate for age. Cardiovascular: Denies chest pain, shortness of breath, Capillary refill < 3 seconds Patient's skin is warm and dry. Respiratory: Airway is patent Trachea midline Respiratory effort is even, unlabored, Respiratory pattern is regular, symmetrical. 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 - Infectious Disease History:: Denies. - Social history:: Smoking status: Patient denies any tobacco usage or history of. Patient/guardian denies using alcohol, street drugs. Screenin:51 [facility] ED Fall Risk Assessment (Adult) History of falling in the last 3 months, me1 including since admission No falls in past 3 months (0 pts) Confusion or Disorientation No (0 pts) Intoxicated or Sedated No (0 pts) Impaired Gait No (0 pts) Mobility Assist Device Used No (0 pt) Altered Elimination No (0 pt) Score/Fall Risk Level 0 - 2 = Low Risk. Abuse screen: Denies threats or abuse. Nutritional screening: No deficits noted. Tuberculosis screening: No symptoms or risk factors identified. Assessment: 21:51 General: Appears uncomfortable, well groomed, well developed, well nourished, Behavior me1 is calm, cooperative, appropriate for age, Reports I had a hair in my right eye yesterday and while working to remove i think i cut the outer layer of my eye. Pain: Complains of pain in inner aspect of conjuctiva of right eye and iris of right eye and outer aspect of conjuctiva of right eye and right eye Pain does not radiate. Pain currently is 6 out of 10 on a pain scale. Quality of pain is described as stinging, Pain began suddenly, Is continuous. Neuro: Level of Consciousness is awake, alert, obeys commands, Oriented to person, place, time, situation, Appropriate for age. Cardiovascular: Capillary refill < 3 seconds Patient's skin is warm and dry. Respiratory: Airway is patent Respiratory effort is even, unlabored, Respiratory pattern is regular, symmetrical. GI: No signs and/or symptoms were reported involving the gastrointestinal system. : No signs and/or symptoms were reported regarding the genitourinary system. EENT: Eyes are tearing on inner aspect of conjuctiva of right eye and iris of right eye and outer aspect of conjuctiva of right eye and right eye redness. Derm: Skin is intact, is healthy with good turgor, Skin is pink, warm \\T\\ dry. Musculoskeletal: No signs and/or symptoms reported regarding the musculoskeletal system. Vital Signs: 21:26 BP 123 / 70; Pulse 87; Resp 17; Temp 97.5; Pulse Ox 99% ; Weight 77.11 kg; Height 5 ft. bm8 0 in. ; Pain 5/10; 22:00 BP 116 / 77; Pulse 84; Resp 14; Pulse Ox 100% on R/A; me1 21:26 Body Mass Index 33.20 (77.11 kg, 152.4 cm) bm8 21:26 Pain Scale: Adult bm8 ED Course: 21:20 Patient arrived in ED. ra3 21:22 Sunny Manley MD is Attending Physician. ec2 21:29 Triage completed. bm8 21:29 Arm band placed on right wrist. bm8 21:43 Aurea Wang, RN is Primary Nurse. me1 21:51 Patient has correct armband on for positive identification. Bed in low position. Call me1 light in reach. Side rails up X2. Provided Education on: POC. Verbalized understanding. . Client placed on continuous cardiac and pulse oximetry monitoring. NIBP monitoring applied. Pulse ox on. NIBP on. 21:51 No provider procedures requiring assistance completed. Patient did not have IV access me1 during this emergency room visit. 21:56 Landon Louis MD is Referral Physician. ec2 Administered Medications: 21:48 Drug: Tetracaine Ophthalmic Drops 0.5 % 1 drops Ophthalmic once Route: Ophthalmic; me1 Site: right eye; 22:10 Follow up: Response: No adverse reaction; Pain is decreased me1 21:56 Drug: ERYTHromycin Ophthalmic Ointment 1 application Ophthalmic once Route: Ophthalmic; me1 Site: right eye; 22:10 Follow up: Response: No adverse reaction me1 Medication: 21:51 VIS not applicable for this client. me1 Outcome: 21:56 Discharge ordered by . ec2 22:15 Discharged to home ambulatory, me1 22:15 Condition: stable 22:15 Discharge instructions given to patient, Instructed on discharge instructions, follow up and referral plans. medication usage, Demonstrated understanding of instructions, follow-up care, medications, Prescriptions given X 1, 22:16 Patient left the ED. me1 Signatures: Aurea Wang, RN RN me1 Sunny Manley MD MD ec2 Mirlande Pastor 3 Steven Wetzel, KATRIN RN bm8 Corrections: (The following items were deleted from the chart) 21:29 PMHx: "kidney infections"; bm8 bm8 21: PMHx: "Stroke"; bm8 bm8 21: 21:26 Chief complaint: Patient states: I had a hair in my right eye yesterday and while me1 working to remove i think i cut the outer layer of my eye bm8
[2023-12-28 04:15] VITALS: BP 116/77; TEMP 97.5; O2SAT 100
== END 2023-12-27 22:16 | disposition home or self-care (01) ==
LOC: ER 21:18
DX: S05.01XA Injury of conjunctiva and corneal abrasion without foreign body, right eye, initial encounter (principal)